=== PATIENT | female | born 1990 | race Caucasian/White ===

== ENCOUNTER 2021-04-01 19:24 | Emergency (ER) | payer OTHER ==
[~2021-04-01] VITALS: Ht 167.6 cm; Wt 65.8 kg
[~2021-04-01 19:24] MED LIST: BACLOFEN20 MG PO; BUPROPION XL300 MG PO; DOXYCYCLINE HY100 MG PO; IPRATROPIUM BRO30 ML NAS
[2021-04-01] MEDS ORDERED: CLARITIN10 MG PO (21:47)
--- OUTSIDE RECORDS SUMMARY | 2021-04-02 00:47 | XMS ---
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 Zhou has no Care Guidelines for this patient. Kavitha V[facility] (12 MO.) [facility] NOTE: Visits indicate total known visits. ED/C VISIT TRACKING (12 MO.) [facility]21 [facility] Emergency COMPLAINT: - NAUSEA 03/29/2021 23:45 [facility] [place] TYPE: Emergency COMPLAINT: - HEADACHE, VOMITING INPATIENT VISIT TRACKING (12 MO.) 03/30/2021 12:57 [facility] [place] TYPE: Critical Care COMPLAINT: - OVERDOSE [id number]
--- NOTE | 2021-04-03 18:42 | EKG ---
[facility] [address] [facility] [place], [place] [address] Signed Normal sinus rhythm Biatrial enlargement Rightward axis Nonspecific T wave abnormality Abnormal ECG No previous ECGs available Confirmed by KATIE SANDOVAL MD ([id number]) on 04/03/2021 6:42:29 PM Electronically Signed By: KATIE SANDOVAL MD 04/03/211841 PATIENT NAME: VON EISENBERG Electrocardiogram DATE OF : [birth year] PHYSICIAN: KATIE SANDOVAL MD REPORT #: [id number] REPORT IS CONFIDENTIAL AND NOT TO BE RELEASED WITHOUT AUTHORIZATION
== END 2021-04-02 02:33 | disposition home or self-care (01) ==
LOC: ED 19:24
DX: G97.1 Other reaction to spinal and lumbar puncture (principal); R07.9 Chest pain, unspecified; M54.9 Dorsalgia, unspecified; Z79.899 Other long term (current) drug therapy
CPT/HCPCS: 71045; 80053; 84484; 85025; 85379; 93005; 93010; 96374; 99285-25; J2405; J7030

== ENCOUNTER 2021-04-04 12:24 | Emergency (ER) | payer OTHER ==
[~2021-04-04] VITALS: Ht 167.6 cm; Wt 59.0 kg
[~2021-04-04 12:24] MED LIST changes: +CLARITIN10 MG PO
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
== END 2021-04-05 10:00 | disposition home or self-care (01) ==
LOC: ED 12:24
PROC: 0T2BX0Z Change Drainage Device in Bladder, External Approach (ICD-10-PCS; principal; 2021-04-04)
DX: G97.1 Other reaction to spinal and lumbar puncture (principal); R07.9 Chest pain, unspecified; Z79.899 Other long term (current) drug therapy
CPT/HCPCS: 51701; 51798; 80053; 81001; 85025; 99283-25; J1170; J1885; J2405; J7030; J7121

== ENCOUNTER 2021-09-17 16:47 | Emergency (ER) | payer OTHER, BC ==
[~2021-09-17] VITALS: Ht 167.6 cm; Wt 59.2 kg
== END 2021-09-17 21:21 | disposition home or self-care (01) ==
LOC: ED 16:47
DX: S06.0X0A Concussion without loss of consciousness, initial encounter (principal); S16.1XXA Strain of muscle, fascia and tendon at neck level, initial encounter; W03.XXXA Other fall on same level due to collision with another person, initial encounter; W22.8XXA Striking against or struck by other objects, initial encounter
CPT/HCPCS: 70450; 72040; 96374; 96375; 99284-25; A9270; J0780; J1170; J1790; J1885; J7030

== ENCOUNTER 2022-02-17 15:18 | Emergency (ER) | payer BC ==
[~2022-02-17] VITALS: Ht 167.6 cm; Wt 59.2 kg
--- NOTE | 2022-02-18 16:57 | EKG ---
[facility] [address] [facility] [place] [address] Signed Sinus bradycardia with sinus arrhythmia Rightward axis Borderline ECG No previous ECGs available Confirmed by ZEINA DIXON MD ([id number]) on 02/18/2022 4:57:41 PM Electronically Signed By: ZEINA DIXON MD 02/18/22 1657 PATIENT NAME: VON SALOMON Electrocardiogram DATE OF : [birth year] PHYSICIAN: ZEINA DIXON MD REPORT #: [id number] REPORT IS CONFIDENTIAL AND NOT TO BE RELEASED WITHOUT AUTHORIZATION
== END 2022-02-17 19:23 | disposition home or self-care (01) ==
LOC: ED 15:18
DX: R00.1 Bradycardia, unspecified (principal); R11.0 Nausea; R42 Dizziness and giddiness
CPT/HCPCS: 36415; 71045; 80053; 83735; 84484; 84703; 85025; 93005; 93010; 99285-25; A9270

== ENCOUNTER 2022-02-18 21:34 | Inpatient (IN) | payer BC ==
[~2022-02-18] VITALS: Ht 167.6 cm; Wt 56.8 kg
--- NOTE | 2022-02-20 15:29 | EKG ---
[facility] [address] [facility] [place] [address] Signed Marked sinus bradycardia Rightward axis ST \T\ T wave abnormality, consider anterior ischemia Abnormal ECG Confirmed by ZEINA DIXON MD ([id number]) on 02/20/2022 3:29:18 PM Electronically Signed By: ZEINA DIXON MD 02/20/22 1529 PATIENT NAME: VON SALOMON Electrocardiogram DATE OF : [birth year] PHYSICIAN: ZEINA DIXON MD REPORT #: [id number] REPORT IS CONFIDENTIAL AND NOT TO BE RELEASED WITHOUT AUTHORIZATION
[2022-02-22] MEDS ORDERED: PROCHLORPERAZIN10 MG PO (10:27)
[2022-02-22] MEDS ORDERED: ONDANSETRON ODT4 MG SL (10:27)
[2022-02-22] MEDS ORDERED: PEPCID20 MG PO (10:27)
== END 2022-02-22 10:50 | disposition home or self-care (01) | DRG 179 ==
LOC: ED 21:34 → MS 21:36 → CCU 21:36 → MS 02-19 13:35 → CCU 02-19 17:17 → MS 02-20 16:00
PROVIDERS: ADMIT Internal Medicine; ATTEND Internal Medicine
PROC: 8E0ZXY6 Isolation (ICD-10-PCS; principal; 2022-02-20)
DX: U07.1 COVID-19 (principal); E86.0 Dehydration; I95.1 Orthostatic hypotension; E03.8 Other specified hypothyroidism; K21.9 Gastro-esophageal reflux disease without esophagitis; K29.00 Acute gastritis without bleeding; N83.201 Unspecified ovarian cyst, right side; R00.1 Bradycardia, unspecified; Z86.711 Personal history of pulmonary embolism; Z95.1 Presence of aortocoronary bypass graft
CPT/HCPCS: 36415; 74176; 76705; 80053; 82533; 83735; 84439; 84443; 84481; 84484; 85025; 85379; 86140; 87502; 93005; 93010; 93306; 96361; 96375; 99285-25; A9270; C9113; C9803; J0780; J0834; J1650; J1720; J2405; J2765; J7030; J7121; Q0177; U0003

== ENCOUNTER 2022-07-27 21:56 | Emergency (ER) | payer BC ==
[~2022-07-27] VITALS: Ht 167.6 cm; Wt 52.2 kg
[~2022-07-27 21:56] MED LIST changes: +ONDANSETRON ODT4 MG SL; +PEPCID20 MG PO; +PROCHLORPERAZIN10 MG PO
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
[2022-07-27] MEDS ORDERED: REGLAN5 MG PO (23:45)
[2022-07-27] MEDS ORDERED: MEGESTROL400 MG/10 PO (23:45)
[2022-07-28] MEDS ORDERED: ONDANSETRON ODT4 MG PO (14:37)
--- NOTE | 2022-07-28 22:08 | EKG ---
[facility] [address] [facility] [place] [address] Signed Sinus bradycardia Rightward axis Nonspecific ST abnormality Abnormal ECG When compared with ECG of 14-JUL-2022 16:24, Significant changes have occurred Confirmed by KATIE SANDOVAL MD ([id number]) on 07/28/2022 10:08:30 PM Electronically Signed By: KATIE SANDOVAL MD 07/28/222207 PATIENT NAME: VON SALOMON Electrocardiogram DATE OF : [birth year] PHYSICIAN: KATIE SANDOVAL MD REPORT #: [id number] REPORT IS CONFIDENTIAL AND NOT TO BE RELEASED WITHOUT AUTHORIZATION
== END 2022-07-28 00:11 | disposition home or self-care (01) ==
LOC: ED 21:56
DX: R55 Syncope and collapse (principal)
CPT/HCPCS: 80053; 83735; 85025; 93005; 93010; 99285-25

== ENCOUNTER 2022-07-28 12:05 | Emergency (ER) | payer BC ==
[~2022-07-28] VITALS: Ht 167.6 cm; Wt 52.4 kg
--- NOTE | ~2022-07-28 | EKG ---
[facility] [address] [facility] [place], [place] [address] Draft EK completed, results pending confirmation PATIENT NAME: VON SALOMON Electrocardiogram DATE OF : [birth year] PHYSICIAN: PRELIMINARY REPORT #: [id number] REPORT IS CONFIDENTIAL AND NOT TO BE RELEASED WITHOUT AUTHORIZATION
[~2022-07-28 12:05] MED LIST changes: +MEGESTROL400 MG/10 PO; +REGLAN5 MG PO
--- OUTSIDE RECORDS SUMMARY | 2022-07-28 12:07 | XMS ---
PreManage Notification: VON SALOMON Security Skip Tracer Events No recent Security Events currently on file CRITERIA MET - [facility] - 2 Visits in 30 Days - 6 ED Visits in 6 Months CARE PROVIDERS JOSE EDUARDO HILL Physician Crab Meat Processor 04/02/2021-Current PHONE: Unknown Zhou has no Care Guidelines for this patient. Colt.Anusha VISIT COUNT (12 MO.) 1 [facility] and Science [place] 1 [facility] ED [address] [facility] TOTAL 9 NOTE: Visits indicate total known visits. ED/C VISIT TRACKING (12 MO.) 07/28/2022 12:06 [facility] [place] TYPE: Emergency COMPLAINT: - LIGHT HEADED, DEHYDRATED 07/27/2022 21:56 [facility] [place] TYPE: Emergency COMPLAINT: - SYNCOPE 07/13/2022 15:54 [facility] [place] TYPE: Emergency COMPLAINT: - VOMITING DIAGNOSES: - Other ventricular tachycardia - Presence of aortocoronary bypass graft - Contact with and (suspected) exposure to COVID-19 - Syncope and collapse 07/13/2022 15:00 [facility] [place] TYPE: Emergency COMPLAINT: - LIGHTHEADED DIAGNOSES: - Other chest pain - Presence of aortocoronary bypass graft - Syncope and collapse 05/26/2022 09:32 [facility] TYPE: Emergency DIAGNOSES: [id number]. Syncpoe 85852. Weakness . Shortness of breath . Chest pain, unspecified . Nausea 02/18/2022 21:35 [facility] [place] TYPE: Emergency COMPLAINT: - DIZZY, LOW HEART RATE 02/17/2022 15:19 [facility] [place] TYPE: Emergency COMPLAINT: - DIZZY, NAUSEA, LOW HEART RATE DIAGNOSES: - Bradycardia, unspecified - Nausea - Dizziness and giddiness 11/17/2021 08:18 [facility] Manny GEIGER TYPE: Emergency DIAGNOSES: - [...] INPATIENT VISIT TRACKING (12 MO.) 07/14/2022 19:59 [facility] TYPE: Cardiovacular ICU DIAGNOSES: - Syncope and collapse - Acute respiratory failure with hypoxia - Dissociative and conversion disorder, unspecified - Apnea, not elsewhere classified - Unspecified coma - Ventricular tachycardia, unspecified - Tachycardia, unspecified 02/20/2022 10:[address] [facility] [address] [facility]bie [facility] [place] TYPE: Medical Surgical COMPLAINT: - GASTRITIS, SYNCOPE, BRADYCARDIA DIAGNOSES: - Gastro-esophageal reflux disease without esophagitis - Other specified hypothyroidism - Unspecified ovarian cyst, right side - [...] without bleeding - Bradycardia, unspecified - Dehydration - Other specified hypothyroidism - COVID-19 - Gastro-esophageal reflux disease without esophagitis - Orthostatic hypotension 12/19/2021 07:51 Mason [facility]ofya GE[facility] TYPE: Intensive Care DIAGNOSES: - Syncope and collapse - Short Achilles tendon (acquired), right ankle - Ventricular tachycardia - Acute kidney failure, unspecified - Malformation of coronary vessels - Other congenital malformations of musculoskeletal system [id number]
[2022-07-28] MEDS ORDERED: ONDANSETRON ODT4 MG PO (14:37)
== END 2022-07-28 21:30 ==
LOC: ED 12:05
DX: E86.0 Dehydration (principal); R00.1 Bradycardia, unspecified; Z95.1 Presence of aortocoronary bypass graft
CPT/HCPCS: 36415; 71045; 80053; 83735; 84484; 85025; 93005; 93010; 96374; 99285-25; J2405; J7030

== ENCOUNTER 2022-07-30 12:03 | Emergency (ER) | payer BC ==
[~2022-07-30] VITALS: Ht 167.6 cm; Wt 52.5 kg
[~2022-07-30 12:03] MED LIST changes: +ONDANSETRON ODT4 MG PO
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
[2022-07-30] MEDS ORDERED: ATIVAN1 MG PO (18:48)
[2022-07-30] MEDS ORDERED: PROMETHAZINE HC25 M1 PO (18:48)
== END 2022-07-30 19:26 | disposition home or self-care (01) ==
LOC: ED 12:03
DX: K31.84 Gastroparesis (principal); R55 Syncope and collapse; Z95.1 Presence of aortocoronary bypass graft
CPT/HCPCS: 36415; 80053; 83735; 84703; 85025; 96361; 96374; 96375; 96376; 99284-25; J2060; J2405; J7030

== ENCOUNTER 2022-08-20 20:30 | Emergency (ER) | payer BC ==
[~2022-08-20] VITALS: Ht 167.6 cm; Wt 52.5 kg
--- NOTE | ~2022-08-20 | EKG ---
[facility] [address] [facility] [place], [place] [address] Draft EK completed, results pending confirmation PATIENT NAME: VON SALOMON Electrocardiogram DATE OF : [birth year] PHYSICIAN: PRELIMINARY REPORT #: [id number] REPORT IS CONFIDENTIAL AND NOT TO BE RELEASED WITHOUT AUTHORIZATION
[~2022-08-20 20:30] MED LIST changes: +ATIVAN1 MG PO; +PROMETHAZINE HC25 M1 PO
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
== END 2022-08-20 22:02 | disposition home or self-care (01) ==
LOC: ED 20:30
DX: R55 Syncope and collapse (principal)
CPT/HCPCS: 36415; 80053; 84484; 85025; 93005; 93010; 99284-25

== ENCOUNTER 2022-12-12 15:18 | Inpatient (IN) | payer BC ==
[~2022-12-12] VITALS: Ht 167.6 cm; Wt 54.5 kg
--- NOTE | ~2022-12-12 | DS ---
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 She has a long-standing diagnosis of gastroparesis and a distant history of eating disorder. This diagnosis of gastroparesis was reaffirmed by solid food emptying study performed under my direction in August 2022 confirming significant gastroparesis. She has been treated with various medications overtime, most notably is intolerant of Reglan and Compazine. She had empiric treatment with domperidone provided by an acquaintance which was beneficial to her, though no longer taking it currently. I was asked by her friend and confidant, Rosy Hernandez RN to assist with hydration. She was having protracted vomiting over the preceding several days up to current admission. Notably, her physician Dr. Li Pryor is out of town and unavailable. The day prior to current admission, she underwent 2 L of lactated Ringer's solution administration in the outpatient area with benefit. She had been using Zofran sublingual without much benefit. I was called by her this morning for protracted vomiting and prescribed a Phenergan suppository 25 mg q.6 hours as an outpatient as she was somewhat resistant to admission to the hospital. This was of no benefit to her. She called me later in the day and she is now directly admitted for further admission for fluid rehydration and other indicated interventions. PAST MEDICAL HISTORY: Rather complex and outlined in note from Dr. 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 She also was thought to have history of pulmonary embolism contacted with air travel, history of gastrointestinal bleeding and prior Achilles tendon lengthening procedure. Her admission medications have included Ativan as needed for anxiety, Megestrol suspension daily likely for appetite support, Reglan 5 mg p.o. t.i.d. despite her previous intolerance of it and Zofran ODT 4 mg q.i.d. as needed. PERTINENT PHYSICAL EXAMINATION: GENERAL: At the time of admission, very thin white woman who look clinically dehydrated. VITAL SIGNS: Temperature 97.5, pulse 55, blood pressure 131/89, O2 saturation 99% on PATIENT NAME: VON SALOMON DISCHARGE SUMMARY DATE OF : [birth year] REPORT #: [id number] PHYSICIAN: ERIBERTO MALCOLM MD PCP: LI PRYOR MD REPORT IS CONFIDENTIAL AND NOT TO BE RELEASED WITHOUT AUTHORIZATION [facility] [address], [place] [address] Draft room air. NECK: Trachea is midline. HEENT: Mucous membranes were dry. CHEST: Clear. HEART: Regular. ABDOMEN: Flat and easily palpated. There is no focal mass or tenderness. EXTREMITIES: Show no clubbing, cyanosis, or edema. HOSPITAL COURSE: She was given aggressive fluid resuscitation with lactated Ringer's solution upon admission. Consideration for administering of erythromycin as a promotility agent was made. An EKG was undertaken as she had somewhat bradycardic arrhythmia. She was noted to have marked sinus bradycardia with a heart rate of 35, nonspecific ST and T-wave changes. Consultation was undertaken with Dr. Motley, hospitalist given her complicated past medical history. Notably, Dr. Motley was very familiar with the patient having admitted her in the past and seen her in the emergency room setting before for concerns of cardiac problems including bradycardic dysrhythmia and presumably a cardiac arrest necessitating a transfer elsewhere for evaluation, which culminated in no specific therapy, though consideration for pacemaker was made at one point. The patient had marked difficulty in maintaining peripheral access. I placed a right internal jugular central venous catheter to assist in her fluid management. Given her small size and so forth, the catheter was more distally placed and anticipated and it was withdrawn to a more acceptable area. The patient was maintained on telemetry as she had a heart rate in the 30s and with some episodes suggestive though not diagnostic of syncopal episode. A gallbladder ultrasound was performed on December 13, which showed no evidence of abnormality of the gallbladder. She did have some right-sided abdominal pain. By December 14, she underwent a CT scan of the abdomen which showed patchy somewhat striated areas of hyperdensity throughout both kidneys, consistent with subtle pyelonephritis. An involuting corpus luteal cyst was noted of the left ovary and a long segment of narrowing involving the mid rectum related to contraction or rectal stricture. She had been empirically begun on Bactrim orally administered for urinalysis at presentation showing white cells of 12 to 20 per high-power field. No urine bacteria and red cells of only 2 to 3. Considering that perhaps the subtle pyelonephritis was a trigger for her gastrointestinal symptoms, she was administered Rocephin under direction of Dr. Motley, which culminated in a rather significant macular eruption and that medication was discontinued. Bactrim orally administered was reinstituted though her issues of vomiting and so forth precluded adequate confidence that the medication was absorbed. Additional evaluation by Dr. Pena follow on hospitalist suggested a benefit perhaps PATIENT NAME: VON SALOMON DISCHARGE SUMMARY DATE OF : [birth year] REPORT #: [id number] PHYSICIAN: ERIBERTO MALCOLM MD PCP: LI PRYOR MD REPORT IS CONFIDENTIAL AND NOT TO BE RELEASED WITHOUT AUTHORIZATION [facility] [address], [place] [address] Draft from Levaquin antibiotic and that was initiated and much better tolerated. She has had overall improvement of her situation, though she had a urinary retention at one point, requiring Cruz catheterization and recurrent apparent retention the day prior to discharge followed by spontaneous voiding and improvement of her voiding function. By day of discharge, the patient has tolerated oral intake including liquids and some solids including a sandwich. She is tolerating oral Levaquin antibiotic and has spontaneously voided. The patient has some additional stressors in her workplace, which are being addressed additionally. The patient does have an inclination to attend a friend's wedding in [place] leaving tomorrow. I advised against doing so given her somewhat uncertain situation overall. She will be considering that. DISCHARGE MEDICATIONS: Will include: 1. Levaquin 750 mg one tablet p.o. daily #7, no refill. 2. Tylenol 500 mg tabs two tablets p.o. q.6 hours as needed for pain #30 and she will continue with her home medication, which currently includes Zofran ODT 8 mg one tab sublingual b.i.d. as needed for nausea. She is advised to maintain a diet typical for those with gastroparesis including frequent meals, upright ingestion and avoidance of excessive fat. FOLLOWUP PLAN: She will return to the ongoing care of Li Pryor, her primary provider. Additional evaluation by Dr. Pryor is ongoing. She has been scheduled to have a Gastroenterology evaluation at [facility], which has been canceled more than one time and is currently scheduled for next month. DISCHARGE DIAGNOSES: 1. Recurrent dehydration, underlying gastroparesis, protracted nausea and vomiting. 2. Occult pyelonephritis (treated). 3. Distant history of eating disorder including requirement for feeding tube etc in teenage years. 4. General intolerance of Reglan, promotility agent. Eriberto Malcolm MD PATIENT NAME: VON SALOMON DISCHARGE SUMMARY DATE OF : [birth year] REPORT #: [id number] PHYSICIAN: ERIBERTO MALCOLM MD PCP: LI PRYOR MD REPORT IS CONFIDENTIAL AND NOT TO BE RELEASED WITHOUT AUTHORIZATION [facility] [address] [place] [address] [place] [address] Draft /LUÍS /[id number] cc: Dr. Li Pryor Copies: ~ PATIENT NAME: VON SALOMON DISCHARGE SUMMARY DATE OF : [birth year] REPORT #: [id number] PHYSICIAN: ERIBERTO MALCOLM MD PCP: LI PRYOR MD REPORT IS CONFIDENTIAL AND NOT TO BE RELEASED WITHOUT AUTHORIZATION
[2022-12-12 15:53] VITALS: BP 131/89
--- NOTE | 2022-12-12 15:57 | NUR ---
PT ARRIVED A DIRECT ADMIT. SHE AMBULATED TO THE FLOOR INDEPENDENTLY. SHE DID NOT WANT THE HOSPITAL TO NOTIFY ANYONE OF HER ADMISSION. SHE DENIED HAVING ANY VALUABLES OTHER THAN HER PHONE, WHICH SHE WOULD LIKE TO KEEP WITH HER. SHE HAS [address] MALCOLM ROUNDED ON PT TO PLACE ORDERS. PT REPORTED SHE DOES NOT THINK SHE HAS VOIDED TODAY, LAST BM YESTERDAY. LOWER ABDOMEN FIRM AND DISTENDED ON HER SLIGHT FRAME. SHE DID NOT REPORT ANY INCREASED DISCOMFORT WITH PALPATION TO SUGGEST DISTENDED BLADDER. SHE REPORTS 6/10 SHARP ABDOMINAL PAIN IN UPPER RIGHT QUADRANT. PAIN HAS INCREASED OVER THE LAST COUPLE DAYS, BUT GOTTEN SIGNIFICANTLY WORSE IN THE HOURS PRIOR TO ARRIVING AT THE HOSPITAL. SHE REPORTS SHE ATTEMPTED TO DRINK WATER ABOUT AN HOUR AGO AND WAS UNABLE TO KEEP IT DOWN. SHE REPORTS SHE HAS NOT KEPT ANYTHING DOWN FOR SEVERAL DAYS. PT DECLINED TO CHANGE INTO GOWN AT THIS TIME.
--- NOTE | 2022-12-12 16:26 | NUR ---
REPORT RECEIVED FROM ZULY NAYLOR. THIS RN ASSUMING CARE OF PT. IV STARTED WITH ULTRASOUND BY ZULY FALK. BRISK BLOOD RETURN NOTED. LABS DRAWN AND SENT TO LAB. PT REPORTS 6/10 PAIN IN RIGHT UPPER QUADRANT. PT REPORTS NAUSEA WELL AND IS SEEN DRY HEAVING ON AND OFF. IV FLUIDS STARTED. MEDICATION GIVEN (SEE MAR). PT REPORTS SHE DOSEN'T KNOW "IF I'VE PEED AT ALL TODAY." STATING SHE DOESN'T FEEL SHE IS URINATING FREQNELTY SHE SHOULD. PT DENIES ADDITIONAL REQUESTS OR COMPLAINTS. WARM BLANKET PROVIDED. CALL LIGHT WITHIN REACH. BED RAILS UP.
--- NOTE | 2022-12-12 17:11 | NUR ---
THIS RN TO ROOM TO CHECK ON PT. PT RESTING IN BED, WATCHING TV. PT REPORTS ONGOING 6/10 PAIN AND STATES NASUEA HAS IMPROVED. PT STATES SHE IS READY FOR ORAL PAIN MEDICATIONS NOW. SEE MAR FOR MEDICATION GIVEN. IV TO LEFT AC INFILTRATED, DC'D PER PROTCOL. DILEEP, ULTRASOUND TECHNITIAN CALLED TO BEDSIDE FOR A NEW IV. JAME, RT, TO BEDSIDE FOR EKG. PT DENIES ADDITIONAL REQEUSTS OR COMPLAINTS. CALL LIGHT WITHIN REACH. BED RAILS UP.
--- NOTE | 2022-12-12 17:38 | NUR ---
PT ADMITTED THIS SHFIT FOR UNCONTROLLED NAUSEA AND VOIMITING WIHT DEHYDRATION. PT INDEPENDANT IN ROOM AND STEADY ON FEET. PT TOLERATING SIPS OF CLEAR LIQUID DIET. OCCATIONAL NAUSEA THIS SHIFT WITH PRN MEDICATION GIVEN. PRN PAIN MEDICATION GIVEN FOR 6/10 RIGHT UPPER QUADRANT PAIN. ULTRASOUND IV X2, FIRST INFILTRATED. IV FLUID BOLUS GIVEN, IV HYDRATION CONTINUES. BOWEL TONES ACTIVE. PT HAS YET TO VOID. PT USES CALL LIGHT AND MAKES NEEDS KNOWN.
[2022-12-12 17:59] VITALS: BP 145/82
--- NOTE | 2022-12-12 18:02 | NUR ---
THIS RN TO ROOM TO CHECK ON PT. PT REPORTS 6/10 ABDOMINAL PAIN CONTINUES AND SHE WOULD LIKE SOMETHING STRONGER FOR PAIN. DR. MALCOLM CALLED. NEW ORDERS GIVEN, ORDERS ENTERED, REPEAT BACK PERFORMED.
--- NOTE | 2022-12-12 18:07 | NUR ---
DR. MALCOLM CALLED AND UPDATED REGARDING PTS HEART RATE AND EVENING VITAL SIGNS. PT REPORTS CHEST PAIN AND DIZZINESS. PRN PAIN MEDICATION GIVEN. NO NEW ORDERS FROM DR. MALCOLM AT THIS TIME. EKG ON CHART.
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
--- NOTE | 2022-12-12 19:20 | NUR ---
MEDICTIONS DUE. IV MAG STARTED. PT DECLINES INAPSINE STATING "I DON'T LIKE HOW IT MADE ME FEEL YESTERDAY." PT REPORTS SHE DOES NOT WANT ADDITIONAL NAUSEA MEDICATIONS AT THIS TIME. PT DOES REPORT ONGOING 6/10 PAIN AND REQUESTS ADDITIONAL PAIN MEDICAITON. SEE MAR FOR MEDICAITON GIVEN. REPORT GIVEN TO RAMY CARUSO WHO IS ASSUMING CARE OF PT. PT DENIES DIZZINESS OR CHEST PAIN REPORTING ONLY THE RIGTH SIDE/ABDOMEN/LOWER CHEST AND FLANK PAIN. NO ADDITONAL NEEDS AT THSI TIME. CALL [employer] WITHIN REACH BED RAILS UP.
--- NOTE | 2022-12-12 20:30 | NUR ---
REPORT RECEIVED THAT MD IS AWARE OF LOW HR
--- NOTE | 2022-12-12 22:35 | NUR ---
SUPERVISIOR ATTEMPTING IV START, UNSUCESSFUL.
--- NOTE | 2022-12-12 22:45 | NUR ---
TC TO DR MALCOLM CONCERNING UNSUCESSFUL IV ATTEMPTS, WORSENING NAUSEA AND PAIN, MD WOULD LIKE THE SAPHENOUS VEIN ATTEMPTED BY RNS, ALSO ORDER RECEIVED FOR ZOFRAN 8MG ORALLY.
--- NOTE | 2022-12-12 22:55 | NUR ---
WARM PACKS TO LEGS, DISCUSSED WITH PT THE NEED TO TRY LEG VEINS, ORAL ZOFRAN 8MG GIVEN PER ORDER, PT REMAINING CALM WITH WITH IV ATTEMPTS.
--- NOTE | 2022-12-13 00:33 | NUR ---
KCL # 2 HUNG AND INFUSING PER ORDER, IV SITE INTACT.
--- NOTE | 2022-12-13 00:36 | NUR ---
PT MEDICATED WITH TORADOL 30MG IV FOR C/O ABDOMINAL PAIN. IV PATENT.
--- NOTE | 2022-12-13 00:46 | NUR ---
VS AND ASSESSMENT DONE
--- NOTE | 2022-12-13 00:55 | NUR ---
RT REQUESTED TO DO EKG FOR PT'S C/O CHEST PAIN, WHICH PT STATED STARTED APPROXIAMTELY 1 HOUR AGO PER PT REPORT, OXYGEN SAT 100%, BREATH SOUNDS CLEAR, RESP RATE 16-20/MIN, PT STATES CHEST PAIN 5/10, LIKE PRESSURE AND ABDOMINAL PAIN 7/10.
--- NOTE | 2022-12-13 01:09 | NUR ---
PT RESTING WITH EYES CLOSED AND HANDS OVER ABDOMIN, RN TO BEDSIDE, PT AWAKENS, STATES CHEST PAIN IS A LITTLE IMPROVED BUT STILL PRESENT. ABDOMIN DISCOMFORT ABOUT THE SAME.
--- NOTE | 2022-12-13 01:18 | NUR ---
TC CALL TO DR MALCOLM TO REPORT PT'S C/O OF CHEST PAIN AND RESULTS OF EKG, REPORT GIVEN ON VS BP 140/69 AND CONTINUED HR OF 35-46, ORDERS RECEIVED THAT DILAUDID MAYBE GIVEN EVERY 30MINUTES PRN WITH SAME DOSE OF 0.5MG IV, STATES IF UNABLE TO RUN KCL WITH CURRENT IV THAT KCL MAYBE HELD.
--- NOTE | 2022-12-13 01:20 | NUR ---
POTASSIUM IV RETIMED DUE TO PT WITHOUT IV ACCESS PRIOR TO COMPLETING FIRST DOSE.
--- NOTE | 2022-12-13 01:30 | NUR ---
PT MEDICATED WITH DILAUDID 0.5MG IV FOR C/O CHEST PAIN WHICH IS 5/10 AND ABDOMINAL PAIN 7/10, PT RESTING. RN AT BEDSIDE.
--- NOTE | 2022-12-13 01:54 | NUR ---
THIRD DOSE OF KCL STARTED PER ORDER.
--- NOTE | 2022-12-13 02:05 | NUR ---
IV ALARMING, UNABLE TO FLUSH, SITE PAINFUL, IV D'GENOVEVA,
--- NOTE | 2022-12-13 02:40 | NUR ---
IV ATTEMPT BY GI CARUSO, INFILTRATED AFTER PLACED.
--- NOTE | 2022-12-13 03:10 | NUR ---
RN NOTIFIED SUPERVISIOR ELIZABETH WAS ABLE TO PLACE A 20G IN LEFT AC, WHEN RN TO ROOM PT FOUND UP IN BR, STATING SHE WAS ATTEMPTING VOIDING, BUT ONLY PASSED A "FEW DROPS", UNMEASURABLE, PT STOPPED AND THREW UP IN GARBAGE CAN BILE COLOR FLUID, BACK TO BED, THROWING UP, ASSISTED TO LAYING POSITION, IVF STARTED AT 50ML/HR THEN INCREASED TO 125ML/HR AFTER A FEW MINUTES.
--- NOTE | 2022-12-13 03:20 | NUR ---
PT REQUESTING ZOFRAN, PRIOR TO ADMINISTRATION NOTED IV SITE PUFFY AND PAINFUL TO FLUSH. SITE INFILTRATED, IVF STOPPED, UNABLE TO GIVEN ZOFRAN.
--- NOTE | 2022-12-13 03:50 | NUR ---
TC TO DR MALCOLM TO NOTIFY 2ND IV HAS INFILTRATED, UNABLE TO ESTABLISH IV ACCESS EVEN WITH U/S, DISCUSSED NO VOID, AND APPROXIMATELY 700ML TOTAL OF EMESIS THIS SHIFT, PT CONTINUES TO BE NAUSEATED, MD PLANS TO COME IN AND REQUESTS PREPARATIONS FOR CENTRAL LINE PLACEMENT BE MADE.
--- NOTE | 2022-12-13 04:35 | NUR ---
DR MALCOLM ARRIVED TO UNIT, PREPARING FOR CENTRAL LINE PLACEMENT, FILI CARUSO ASSISTING, SUPPORT GIVEN TO PT.
--- NOTE | 2022-12-13 04:58 | NUR ---
PER PROTOCOL AND REQUEST OF [facility], CHEST X-RAY ORDERED STAT FOR CONFIRMATION OF CENTRAL LINE PLACEMENT.
--- NOTE | 2022-12-13 05:00 | NUR ---
CXR COMPLETED AND REVIEWED PER DR MALCOLM, CONFIRMATION FOR PROPER PLACEMENT CONFIRMED.
--- NOTE | 2022-12-13 05:05 | NUR ---
LR #1 UP AND INFUSING A BOLUS PER ORDER OF DR MALCOLM.
--- NOTE | 2022-12-13 05:34 | NUR ---
PT C/O ABDOMINAL PAIN, MEDICATED WITH DILAUDID 1MG IV PER ORDER.
[2022-12-13 05:40] VITALS: BP 145/78
--- NOTE | 2022-12-13 05:41 | NUR ---
HYDROCORTIZONE 100MG IV GIVEN PER ORDER OF DR MALCOLM.
[2022-12-13 05:44] VITALS: BP 159/83
--- NOTE | 2022-12-13 05:45 | NUR ---
LABS DRAWN PER CENTRAL LINE AFTER WASTE DONE PER FILI CARUSO.
--- NOTE | 2022-12-13 06:00 | NUR ---
FIRST LITER OF LR INFUSED, 2ND LITER BOLUS OF LR HUNG AND INFUSING WELL PER PUMP, CENTRAL LINE INTACT.
--- NOTE | 2022-12-13 06:37 | EKG ---
[facility] [address] [place] [address] Signed Marked sinus bradycardia Rightward axis Anterior infarct , age undetermined Abnormal ECG When compared with ECG of 20-AUG-2022 20:45, Vent. rate has decreased BY 29 BPM Confirmed by KATIE SANDOVAL MD ([id number]) on 12/13/2022 6:36:59 AM Electronically Signed By: KATIE SANDOVAL MD 12/13/22 0637 PATIENT NAME: VON SALOMON Electrocardiogram DATE OF : [birth year] PHYSICIAN: KATIE SANDOVAL MD REPORT #: [id number] REPORT IS CONFIDENTIAL AND NOT TO BE RELEASED WITHOUT AUTHORIZATION
--- NOTE | 2022-12-13 06:38 | EKG ---
[facility] [address] [facility] [place] [address] Signed Marked sinus bradycardia Right axis deviation Nonspecific ST and T wave abnormality Abnormal ECG No previous ECGs available Confirmed by KATIE SANDOVAL MD ([id number]) on 12/13/2022 6:38:09 AM Electronically Signed By: KATIE SANDOVAL MD 12/13/22 0638 PATIENT NAME: VON SALOMON Electrocardiogram DATE OF : [birth year] PHYSICIAN: KATIE SANDOVAL MD REPORT #: [id number] REPORT IS CONFIDENTIAL AND NOT TO BE RELEASED WITHOUT AUTHORIZATION
--- NOTE | 2022-12-13 07:09 | NUR ---
CONFIRMATION CXR DONE PER ORDER AND REVIEWED PER DR MALCOLM, GINNY REPORTED OK TO USE.
--- NOTE | 2022-12-13 07:15 | NUR ---
REPORT RECEIVED FROM ZULY MCCANN. PT RESTING IN BED. REPORTS SEVERE NAUSEA. PT REPORTS NAUSEA IS MUCH WORSE THAN THE PAIN. DRY HEAVES NOTED. DR. MALCOLM CONSULTED, AND STATES TO HOLD INAPSINE. DR MALCOLM UPDATED REGARDING URIN OUTPUT. PT BLADDER SCANED AND >690 FOUND IN BLADDER. ORDERS GIVEN FOR MORALES CATHTER. ORDERS ENTERED. PT UPDATED ON PLAN OF CARE AND STATES HER QUESTIONS HAVE BEEN ASNWSERED.
--- NOTE | 2022-12-13 08:12 | NUR ---
MORNING ASSESSMENT AND MEDICATION DUE. PT CONTINUES TO DRY HEAVE AT TIMES. ATTEMPTES TO PLACE MORALES CATHETER, TIRED BY THIS RN, SAW SALAZAR LIZ ([facility]), CYNDY (MED/SURG CHARGE), AND MIKE, (CONSTRUCTION DIRECTOR). MORALES CATHETER FINALLY PLACED BY ZULY MCKEON. 875ML RETURN OF CLEAR YELLOW URINE. PT REPROTS 3/10 PAIN IN RIGHT ABDOMEN. PT DENIES NEED FOR PAIN MEDICATION AT THIS TIME STATING "IT'S JUST NAUSEA RIGHT NOW." INAPSINE CONTINUES TO BE HELD RELATED TO HEART RATE. TELEMETRY MONITORING IN PLACE WITH SINUS BRADYS SEEN ON MONITOR, HEART RATE 30-40'S. PT REPORTS DIZZINESS AND CHEST PAIN THAT IS "A LITTLE BIT BETTER." PT CONTINUES TO HAVE TROUBLE EVEN TOLERTING SIPS OF LIQUIDS. ABDOMEN SOFT BUT TENDER IN RIGHT UPPER QUADRANT. BOWEL TONES HYPOACTIVE. DRYING HEAVING CONTINUES EVEN AFTER FOLCY CATHETER PLACEMENT. DR SANDOVAL CONSULTED. AWAITING NEW ORDERS. PT REPORTS "LESS PRESSURE" IN HER STOMACH AFTER CATHETER PLACEMENT. REPORTS NAUSEA IS UNCHANGED. BED RAILS UP. CALL LIGHT IGOR YOUSSEF.
[2022-12-13] MEDS ORDERED: BUPROPION XL150 MG PO (08:20)
[2022-12-13] MEDS ORDERED: ATOMOXETINE HCL60 MG PO (08:20)
[2022-12-13] MEDS ORDERED: TRAZODONE HCL100 MG PO (08:20)
[2022-12-13] MEDS ORDERED: ONDANSETRON ODT8 MG SL (08:22)
[2022-12-13] MEDS ORDERED: PROMETHEGAN25 MG PR (08:27)
--- NOTE | 2022-12-13 08:47 | NUR ---
DR. MALCOLM CALLED AND UPDATED REGARDING PT STATUS. STATES TO GIVEN INAPSINE AT THIS TIME. MEDICATION GIVEN. PT CONTINUES TO DRY HEAVE ON AND OFF. PO MEDICATINO HELD FOR THIS REASON. PT STATES SHE DOES NOT TYPICALLY HAVE A HEART RATE INT HE 30-40'S AND "I FEEL LIKE CRAP WHEN ITS LIKE THAT." PT STATES HER HEART RATE TRACKER FROM HER WATCH STATES HER ADVERAGE LOW HAERT RATE OVER THE LAST WEEK IS 65 BPM. PTS WATCH COORILATES TO CURRENT TELEMETRY MONITORING. PT ENCORUAEGD TO REST. CALL LIGHT WITHIN REACH. BED RAILS UP. DR. SANDOVAL UPDATED ON PT STATUS.
--- NOTE | 2022-12-13 09:41 | NUR ---
DR MALCOLM CALLED TO REQUEST AND UPDATE. UPDATED ON PT STATUS. PT REPORTS THE INAPSINE HELPED AND HER NAUSEA IS "BETTER" AT THIS TIME. PT REPORTS PAIN IS "BETTER" ALSO AND DENIES NEED FOR PAIN MEDICAITON. PT WATCHING TV. HEART RATE 43 ON TELEMETRY MONITORING WITH SINUSY BRADYCARDIA RYTHEM. PT DENIES ADDITIONAL REQUESTS OR COMPLAINTS. NO NEW ORDERS FROM DR. MLACOLM. CALL LIGHT WITHIN REACH. BED RAILS UP.
[2022-12-13 09:43] VITALS: BP 117/72
--- NOTE | 2022-12-13 10:35 | NUR ---
THIS RN TO ROOM TO CHECK ON PT. DR. SANDOVAL TO BEDSIDE FOR ROUNDS. PT UPDATED ON PLAN OF CARE AND VERBALIZES UNDERSTANDING STATING HER QUESTIONS HAVE BEEN ANSWERED. PT ENCOURAGED TO REST. NAP TIME SIGN PLACED ON DOOR AND PT ENCOURAEGD TO CALL IF SHE NEEDS HELP OTHERWISE SHE WILL BE ALLOWED TO REST. PT COTNINUES TO REPORT NAUSEA BUT NOTABLY PT IS NOT DRY HEAVING AND APPEARS MORE RELAXED. MORALES CATHETER WNL, CLEAR YELLOW URINE SEEN IN BAG. HEART RATE 37 WITH SINUSY BRADYCARDIA SEEN ON MONITOR. NO ADDITIONAL REQUESTS OR COMPLAINTS. CALL LIGHT WITHIN REACH. BED RAILS UP.
--- NOTE | 2022-12-13 11:47 | NUR ---
THIS RN TO ROOM TO CHECK ON PT. MEDICATION DUE. PT RESTING IN SUPINE POSITION. FRIEND AT BEDSIDE. PT REPORTS 3/10 RIGHT SIDE AND RIGHT LOWER CHEST PAIN THAT IS "BETTER." PT REPORTS 4/10 NAUSEA, IF 10/10 WAS THE EPISODES THIS MORNING, WHICH IS ALSO GETTING BETTER. PT CONTINUES TO STATE SHE CANNOT TOLERATE PO, MEDICATION HELD. IV POTASSIUM STARETED. CENTRAL LINE REMAINS WNL WITH BRISK BLOOD RETURN NOTED. POTASSIUM INFUSING WITH IV FLUIDS THROUGH WHITE LUMEN. MORALES CATHETER REMAINS WNL. DRAINING CLEAR YELLOW URINE. PT VERY ANXOUS ABOUT GOING HOME TODAY. 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 THERAPUTIC COMMUNICATION DONE WITH PT AND PT AGREES TO TAKE EACH HOUR AT A TIME. NO ADDITIONAL NEEDS AT THIS TIME. CALL LIGHT WITHIN REACH. BED RAILS UP.
--- NOTE | 2022-12-13 12:18 | NUR ---
ULTRASOUND TECHNITIAN CALLED AND STATES SHE WILL BE IN SHORTLY FOR IMAGING. CHARGE NURSE UPDATED.
--- NOTE | 2022-12-13 13:16 | NUR ---
AFTERNOON ASSESSMENT AND MEDICATION DUE. PT RESTING IN BED. PT REQUESTS LINEN CHANGE. PT UP TO CHAIR WITH STAND BY ASSIST. PT DENIES DIZZINESS, PT STEADY ON FEET. PT REPORTS "FOGGY" THINKING BUT OTHERWISE STATES SHE IS FEELING MUCH BETTER. PT DENIES DIZZINESS CHEST PAIN OR LIGHT HEADEDNESS. PT REPORTS 2/10 RIGHT UPPER QUDRANT PAIN AND 2/10 NAUSEA BOTH OF WHICH ARE "BETTER." PT CONTINUES TO STATE SHE IS ANXOUS TO GET HOME. MEDICAL NEED TO STAY REVEIWED WITH PT AND PT VERBALIZES UNDERSTANDING. CENTRAL LINE ASSESSED, WNL. WHITE LUMEN CONTINUES INFUSING IV FLUIDS AND POTASSIUM. BLUE AND BROWN LINES FLUSHED, BRISK BLOOD RETURN NOTED, AND HEPARIN LOCKED. ALCOHOL CAPS APPLIED. LUNG SOUNDS CLEAR. TELEMETRY MONITORING IN PLACED WITH SINUS BRADYCARDIA SEEN ON MONITOR. HEART RATE NOW 40-50'S. MILD ABDOMINAL DISTENTION CONTINUES, IMPROVING. PT REPORTS ABDOMEN IS "LESS TIGHT" SINCE CATHEER PLACEMENT. BOWEL TONES HYPOACTIVE. ABDOMEN TENDER IN RIGHT UPPER QUADRANT. PT REMAINS NPO PER HER CHOICE. STATES SHE IS NOT YET READY TO TRY FLUIDS. MORALES CATHETER EMPITED OF 350ML CLEAR YELLOW URINE. DR. MALCOLM CALLED AND UPDATED ON PT STAUTS. ORDERS GIVEN TO DC HYDROCORISONE AND ANTIBIOTIC. ORDERS DC'D AT THIS TIME. PT UPDATED ON PLAN OF CARE. PT RESTING IN BED WITH EYES CLOSED, PTS FRIEND AT BEDSIDE. CALL LIGHT WITHIN REACH. BED RAILS UP. DO NOT DESTURB SIGN REMAINS ON DOOR.
[2022-12-13 13:32] VITALS: BP 125/72
--- NOTE | 2022-12-13 14:17 | NUR ---
THIS RN TO ROOM TO CHECK ON PT. PT RESTING WITH EYES CLOSED. AWAKENS BRIEFLY TO MOVEMENT IN THE ROOM. PT DENIES REQUESTS OR COMPLAINTS. REPORTS PAIN AND NAUSEA ARE WELL CONTROLLED. NEW BAG OF MATINENCE IV FLUIDS HUNG. NO ADDITIONAL REQUESTS OR COMPLAINTS. CALL LIGHT WITHIN REACH. BED RAILS UP.
--- NOTE | 2022-12-13 15:17 | NUR ---
THIS RN TO ROOM TO CHECK ON PT. PT RESTING IN BED WITH EYES CLOSED, RESPIRATIONS EVEN AND UNLABORED. TELEMETRY MONITORING SHOWS SINUS BRADYCARDIA WITH HEART RATE IN THE 40'S. PT ALLOWED TO REST. CALL LIGHT WITHIN REACH. BED RAILS UP.
--- NOTE | 2022-12-13 15:22 | NUR ---
PT HERE FOR UNCONTROLLED NAUSEA AND VOIMITING WITH SEVERE DEHYDRATION. PT INDEPENDANT IN ROOM AND STEADY ON FEET. PT NOT TOLEARTING ANY PO INTAKE SO FAR THIS SHIFT. PRN NAUSEA MEDICATION GIVEN X1 FOR SEVERE NAUSEA AND DRY HEAVING. THEN ALL MEDICAITONS STOPPED RELATED TO POSSIBLE POLYPHARMACY AND SIDE EFFECTS. BLADDER SCAN THIS MORING AT >690ML AND PT UNABLE TO VOID. MORALES CATHETER PLACED WITH 850ML RETURN, CONTINUES TO DRAIN, QUANITTY SUFFICIENT. UA SENT. MONITORING LABS. CENTRAL LINE IN PLACE WITH IV HYDRATION. PT REPORTS PAIN AND NASUEA ARE IMPROVING THIS AFTERNOON. BOWEL TONES ACTIVE. PT ENOURAGED TO REST THIS SHIFT. PT ANXIOUS FOR DISCHARGE. TELEMETRY MONITORING REMAINS IN PLACE WITH SINUSY RICKY CARDIA IN THE 30-50'S THIS SHIFT. PT USES CALL LIGHT AND MAKES NEEDS KNOWN.
--- NOTE | 2022-12-13 16:30 | NUR ---
PT CALL LIGHT ON. PT REPORTS SHE WOULD LIKE TO MAKE A PLAN FOR GOING HOME SHE FEELS PRESSURE TO WORK TOMORROW AND IS WORRIED ABOUT LOOSING HER JOB. PT RIGHT REVEWIED WITH PT AND LONG THERAPUTIC COMMUICATION DISCUSSION HELD WITH PT. PT VERBALIZES UNDERSTANDING OF PLAN OF CARE AND NEED FOR ADDITIONAL MEDICAL CARES. PT VERABLIZES UNDERSTANDING THAT SHE IS NOT MEDICALLY STABLE AT THIS TIME. DR SANDOVAL REQUESTS INFORMATION REGARDING TIME PT TOOK PHENEGRAN YESTERDAY WELL HALF LIFE OF ZOFRAN AND PHENGRAN. INFORMATION AQUIRED FROM PT AND YANE, PHARMACIST AND PASSED ON TO DR SANDOVAL. (PT REPORTS SHE TOOK THE PHENEGRAN AT 1130AM WEDNESDAY MORNING, ZOFRAN GIVEN DURING HOSPITAL STAY). MORALES CATHETER LEFT IN PLACE. URINE SAMPLE COLLECTED AND SENT TO LAB. PT REPORTS 6/10 NAUSEA AT THIS TIME AND IS SEEN TO HAVE AN ADDITIONAL 300ML LIGHT CLEAR YELLOW EMESIS AFTER TAKING A SIP OF WATER. ORAL CARE DONE. PT REPORTS 5/10 PAIN. PT DENIES NEED FOR MEDICATIONS FOR EITHER PAIN OR NASUEA. DR SANDOVAL UPDATED ON PT STATUS, MEDICATOIN INFORMATION, AND PTS CONCERNS. NO NEW ORDERS AT THIS TIME. CALL LIGHT WITHIN REACH. BED RAILS UP. PTS FRIEND AT BEDSIDE.
--- NOTE | 2022-12-13 17:10 | NUR ---
LABS DUE. PT CONTINUES RESTING IN BED AND CONTINUES TO BE AGITATED ABOUT LOOSING HER JOB. PT WILLING TO TEXT HER BOSS AND REPORT THAT SHE IS NOT YET MEDICALLY STABLE. 10ML BLOOD REMOVED FROM BROWN LUMEN OF CENTRAL LINE TO REMOVE HEPARIN AND WASTE. 5ML LAB DRAW AFTER WASTE (SENT TO LAB). LINE FLUSHED WITH 10ML NS AND HEARPIN LOCKED PER PROTOCOL (SEE MAR). ALCOHOL CAP APPLIED. PT REQUESTS TO GET UP TO AMBULATE. PT UP IN [place] TO AMBULATE WITH GARBAGE WORKER STAND BY ASSISTANCE. HEART RATE IN THE 50-60'S WITH AMBULATION. DR. SANDOVAL TALKING WITH PT WHILE SHE AMBULATES. NO ADDITIONAL REQUESTS OR COMPLAINTS.
--- NOTE | 2022-12-13 17:26 | NUR ---
Assisted Pt with ambulation from bed through hallway. Pt seemed dizzy and stopped a couple times to catch breath and held hand at chest near heart. Pt ambulated near RN and Doctor, and Pt sat down in chair for a few minutes. Ambulated Pt back to room when Pt was stable. Call light left in reach. Tele monitor connected and on. No other needs expressed by Pt.
[2022-12-13 17:32] VITALS: BP 114/71
--- NOTE | 2022-12-13 17:47 | NUR ---
PT UP TO AMBULATE IN NGUYEN, WHILE AMBULATING PT BECOMES DIZZY AND EYES BEGIN TO FLUTTER. UNABLE TO SEE EXACT HEART RYTHEM AT THIS TIME 2 LEADS HAD COME LOOSE. TELEMETRY LEADS REATTACHED. DR SANDOVAL WITH PT. PT WHEELED BACK TO ROOM AND ENCOURAGED TO REST. HEART RATE CURRENTLY IN SINUS BRADYCARDIA WITH HEART RATE IN THE 40'S. DR. MALCOLM CALLED AND UPDATED ON PTS STATUS, ASSESSMENT AND LABS. NEW ORDERS GIVEN. ORDERS ENTERED, REPEAT BACK PERFORMED. DR SANDOVAL ENTERS BACTRUM ORDER PER HER REQUEST. PTS STATUS CHANGED TO INPATIENT PER DR. MALCOLM. PT RESTING IN BED. NO ADDITIONAL NEEDS AT THIS TIME. CALL LIGHT WITHIN REACH. BED RAILS UP.
--- NOTE | 2022-12-13 18:10 | NUR ---
NEW MEDICATION ORDERED. GIVEN ORDERD. PT SEEN TO DRY HEAVE AFTER TAKING MEDICATION BUT IS SO FAR ABLE TO KEEP MEDICATION DOWN.CENTRAL LINE DRESSING LOOSE, CHANGED PER PROROCOL. PROCEEDURE AND PLAN OF CARE REVIEWED WITH PT. PT ENCOUARGED TO REST. TELEMTRY MONTIORING IN PLACE, HEART RATE IN THE 40'S. NO ADDITIONAL REQUESTS OR COMPLAINTS. CALL LIGHT WITHIN REACH. BED RAILS UP. PT CONTINEUS TO REPORT FOGGY THINKING AND STATES "I'M NOT THINKING VERY WELL RIGHT NOW." PT ENCORUAGED TO REST.
--- NOTE | 2022-12-13 19:51 | NUR ---
IV ALARMING, DISTAL OCCUL. TUBE KINKED UNDER ARM, REPLACED TELE LEADS. ENCOURAGED PT TO CALL IF IV ALARMS.
--- NOTE | 2022-12-13 20:03 | NUR ---
RECEIVED REPORT FROM DAY SHIFT RN. PATIENT IS RESTING IN BED. PATIENT DENIES ANY NAUSEA. NO NEEDS NOTED. CALL LIGHT IN REACH. IV INFUSING PER ORDER.
[2022-12-13 21:28] VITALS: BP 122/71
--- NOTE | 2022-12-13 21:50 | NUR ---
Assisted RN with 1PA seated shower. Pt independently washed hair and body. Pt became lightheaded and needed assistance from RESIDENTIAL PROPERTY MANAGER and RN getting from shower to bed. Gave Pt clean socks, gown, and blankets. Cleaned up bathroom and shower by wiping up water. RN assumed care. No other needs expressed by Pt.
--- NOTE | 2022-12-13 22:28 | NUR ---
PATIENT ASSESMENT COMPLETED. VITALS TAKEN AND RECORDED. MORALES EMPTIED. INTAKE AND OUTPUT RECORDED. PATIENTS PM MEDS GIVEN PER ORDER. PATIENT HAS IJ AND THIS RN SL IT FOR SHOWER. WHEN GETTING UP TO SHOWER PATIENT STOOD AT BEDSIDE AND THEN WENT LIMP AND EYES ROLLED BACK INTO HEAD. AFTER ABOUT A MIN PATIENT STATED "I AM FINE". PATIENT ABLE TO SHOWER SLEF WHILE SITTING IN SHOWER CHAIR PATIENT DID HAVE EPISODE OF WRETCHING NO EMESIS NOTED. PATIENT BACK IN BED AFTER SHOWER. IJ DRESSING CHANGED AND IS NOW INFUSING PER ORDER. PATIENT PLACED BACK ON TELE #1 AND CONTINUES TO BED SINUS RICKY. PATIENTS MORALES DRAINING CLEAR YELLOW URINE. PATIENT DENIES ANY FURTHER NEEDS. CALL LIGHT IN REACH. BED ALARM ON FOR SAFETY.
--- NOTE | 2022-12-13 22:34 | NUR ---
PATIENT HAD NOTED IN CREASED HR ON TELE. PATIENT FOUND IN BATHROOM BRUSHING HER TEETH. PATIENT EDUCATED ON THE IMPORTANCE TO HAVE STAFF WITH HER AT ALL TIMES WHEN SHE IS OUT OF BED. BED ALARM MUST HAV NOT SET PROPERLY. PATIENT STATED "I AM FINE I AM SAFE". PATIENT EDUCATED THAT SHE HAS HAD NOTED EPISODES OF EYES ROLLING BACK IN HER HEAD, WEAKNESS AND BEING DIZZY. PATIENT STATED "I AM FINE". PATIENTS BED ALARM PLACED ON FOR PATIENT SAFETY.
--- NOTE | 2022-12-13 23:10 | NUR ---
PATIENT UP AND AMBULATED IN THE HALLWAY. PATIENT COMPLETED X3 LAP IN THE HALLWAY. PATIENT HAD ONE EPISODE OF "TUNNEL VISION". PATIENT OSAT IN WHEELCAHIR FOR ABOUT 1 MINUTE AND THEN WAS ABLE TO AMBULATE BACK TO ROOM. PATIENT IS IN BED RESTING. PATIENT DENIES ANY FURTHER NEEDS. CALL LIGHT IN REACH.
--- NOTE | 2022-12-14 00:12 | NUR ---
PATIENT IS RESTING IN BED. PATIENT DENIES ANY NEEDS. CALL LIGHT IN REACH. IV INFUSING PER ORDER.
--- NOTE | 2022-12-14 02:18 | NUR ---
PATIENT IS RESTING IN BED WITH EYES CLOSED, RR 16. TELE #1, HR 46. CALL LIGHT IN REACH.
--- NOTE | 2022-12-14 02:55 | NUR ---
PATIENT HAD 200ML OF EMESIS. PATIENT UP TO BR AND ABLE TO BRUSH TEETH. PATIENT AMBULATED X5 LAPS IN HALLWAY. PATIENT ABLE TO COMPLETED CARE AND AMBULATE IN NGUYEN WITH NO NOTED EPISODES OF BEING DIZZY OR LIGHT HEADED. PATIENT IS BACK IN BED RESTING. PATIENT DENIES ANY FURTHER NAUSEA AFTER AMBULATION OR PAIN. PATIENT DENIES ANY FURTHER NEEDS. CALL LIGHT IN REACH. IV INFUSING PER ORDER.
--- NOTE | 2022-12-14 03:05 | NUR ---
THIS RN NOTICED PATIENT HAD INCREASED HR OF 111 ON TELE. PLACED CALL TO CCU. CCU RN STATED "IT LOOKS LIKE ARTIFACT". THIS RN ASKED CCU TO PRINT STRIPS OF THE EVENT. DURING EVENT PATIENT WAS RESTING IN BED WITH EYES CLOSED, RR 16. HANDS AT PATIENTS SIDE. PATIENT ONLY COVERED IN SHEET.
--- NOTE | 2022-12-14 03:35 | NUR ---
PATIENT WITH NOTED INCREASED HR ON TELE NOTED BY DIRECTOR INSTRUCTIONAL MATERIAL TO BE 255 WITH WHAT APPEARED TO BE ARTIFACT. PATIENT REPORTED ABD PAIN AND CONTINUES TO WRETCH. PATIENT GIVEN PRN PAIN MEDICATION AND CONTINUES TO REFUSE NAUSEA MEDICATION. CCU PRINTED STRIP FROM INCREASED HR NOTED AT 330. PATIENT DENIES ANY CHEST PAIN OR DISCOMFORT. PATIENT REPORTS HAVING A HARD TIME CATCHING HER BREATH DURING WRETCHING. PATIENT APPEARS TO BE COMFORTABLE AND DENIES ANY FURTHER NEEDS. CALL LIGHT IN REACH.
--- NOTE | 2022-12-14 04:13 | NUR ---
PATIENT CONTINUES TO WRETCH. CCU RN CALLED AND STATED THAT PATIENT HAD WHAT APPEARED TO BE 12.45 SEC RUN OF VFIB. PLACED CALL TO MD. VERBAL ORDER RECEIVED TO GIVE PRN ZOFRAN. MD ASKS THAT STRIPS BE PRINTED OF EVENTS AND TO CALL IF HR IS ELEVATED AGAIN. PATIENTS TELE LEAD AND STICKERS REPLACED AFTER PATIENT CLEANED SKIN WITH ALCOHOL SWAB AND DRIED. PATIENT GIVEN PRN ZOFRAN. IV INFUSING PER ORDER. NO FURTHER NEEDS NOTED. CALL LIGHT IN REACH.
[2022-12-14 05:00] VITALS: BP 126/86
--- NOTE | 2022-12-14 05:19 | NUR ---
PATIENTS LABS DRAWN FROM IJ. ALL LINES FLUSHED WITH 10ML NS. WASTED 10ML OF BLOOD AND DISCARDED. CLAVES CHANGED AND BLUE AND BROWN LUMENS HEP LOCKED. PATIENTS WHITE LUMEN PAUSED DURING BLOOD DRAW AND IS NOW INFUSING IV FLUIDS PER ORDER. PATIENT DENIES ANY [AIN OR NAUSEA AT THIS TIME. PATIENT IS RESTING IN BED. VITALS TAKEN AND RECORDED. MORALES EMPTIED. INTAKE AND OUTPUT RECORDED. PATIENT DENIES ANY FURTHER NEEDS. CALL LIGHT IN REACH.
--- NOTE | 2022-12-14 07:32 | NUR ---
Got report from strawhat sizer RN. Patient currently laying in bed. IV fluids running, patient denies needing anything at this time. Call light within reach.
--- NOTE | 2022-12-14 08:00 | NUR ---
IN TO ROOM TO SEE PATIENT. PATIENT AWAKE STATING SHE IS FEELING MUCH BETTER. PATIENT CURRENTLY LIVES IN A HOME WITH HER DOG. SHE HAS 3 STEPS LEADING INTO THE HOME WITH NO HAND RAIL. NO DME NEEDS AT THIS TIME. PATIENT IS EMPLOYEED AND DOES NOT REQUIRE ANY FINANCIAL ASSISTANCE. PATIENT STATES SHE IS FEELING WELL ENOUGH TO DISCHARGE TODAY. WILL UPDATE MD. WILL CONTINUE TO CHECK IN WITH PATIENT DURING HER STAY.
[2022-12-14 09:08] VITALS: BP 134/71
--- NOTE | 2022-12-14 09:30 | NUR ---
into see patient. Patient advised that she was overall doing well. This nurse advised that ordered patient magensium and potassium. advised that patient just got pain medication IV for abdominal pain. Unable to give oral as patient started to dry heave after given oral antibiotic. Per he is going to order a CT scan today.
--- NOTE | 2022-12-14 09:46 | NUR ---
Patient up and walked two laps around med sug floor with no complications. No dizziness.
--- NOTE | 2022-12-14 10:25 | NUR ---
IMAGING CALLED AND ADVISED NURSE THAT THEY NEED AN IV IN PATIENT TO DO THE CONOTRAST. SHE CURRENTLY ONLY HAS AN IJ SHE IS A HARD STICK. FLOAT NURSE TRIED TO START IV AGAIN THIS MORNING BUT NO LUCK. PHONE CALL TO HE WILL CALL BACK WHEN HE IS OUT OF HIS OFFICE VISIT.
--- NOTE | 2022-12-14 10:52 | NUR ---
Float nurse was able to get a IV in patient, painful to flush. Imaging came up and saw patient and advised since IJ is central line they can use it. Patient did try to take some sips of water before going to CT and had 200 emesis out less then 5 minutes after drinking water.
--- NOTE | 2022-12-14 11:12 | NUR ---
Patient back from CT. Patient hooked back up to magenisum and fluids. Cruz bag emptied. Patient would like to take a rest at this time. Call light within reach. Denies any other cares.
--- NOTE | 2022-12-14 11:42 | NUR ---
INTO VISIT WITH PATIENT IN REGARDS TO CT FINDINGS. SHE WILL CONTACT IN REGARDS TO THIS.
--- NOTE | 2022-12-14 12:04 | NUR ---
PATIENT REQUESTING PAIN MEDICATION. PAIN 12/12. DENIES WANTING TO TRY TYLENOL OR TORADOL AT THIS TIME. SHE WOULD LIKE TO GET THE PAIN DOWN TO WHERE SHE CAN TOLERATE IT AND THEN START USING ORAL TYLENOL.
--- NOTE | 2022-12-14 12:19 | NUR ---
POTASSIUM STOPPED AND ROCEPHIN RUNNING ITS ONLY A 30 MINUTE ANTIBIOTIC AND THEN WE CAN REMOVE MORALES AND TRIAL FOR VOIDING. AFTER ROCEPHIN DONE THIS NURSE WILL HOOK PATIENT BACK UP TO POTASSIUM.
--- NOTE | 2022-12-14 12:30 | NUR ---
Patient used call light to call nurse station as she was having trouble breathing. Rocephin was started 15 minutes before she called. This nurse, HORSE GROOMER, and charge nurse into patients room. Patient bent forward in hospital bed holding her chest. Oxygen placed on patient 2L, vitals done and Rocephin stopped and flushed with NS. Patient also itching on her left side of the neck causing it to bleed. Patient monitored and advised and medications ordered and given. Patient chest pain and SOB improved. Hydrocortosone cream applied to areas on neck and chest. Oxygen taken off of patient about 30 minutes after reaction. Patient on pulse ox and will continue to monitor and remove if she continues to hold her oxgyen. Patient states she is very tired now and is resting in bed. Patient has LR and potassium hooked back up and running. Rocephin will be added to her allergy list. Allergy armband placed.
[2022-12-14 12:32] VITALS: BP 147/104
[2022-12-14 12:42] VITALS: BP 132/81
--- NOTE | 2022-12-14 13:07 | NUR ---
CONNECTED WITH PT SHE WAS AMBULATING IN HALLWAY, GAVE SUPPORT AND ENCOURAGEMENT-PT ACKNOWLEDGED. WILL FOLLOW
--- NOTE | 2022-12-14 14:33 | NUR ---
ORDERS PER TO HAVE XRAY DONE TO CHECK PLACEMENT OF CENTRAL IJ LINE. AFTER XRAY ADVISED CENTRAL LINE NEEDS TO BE PULLED OUT 6CM. CHARGE NURSE, AND THIS NURSE INTO PATIENTS ROOM TO ADJUST LINE. PATIENT TOLERATED WELL. DR. MALCOLM WILL BE BY SHORTLY TO SUTURE IN LINE. PATIENT ADVISED TO TRY TO NOT MOVE AROUND TO MUCH THE SUTURES HAVE NOT BEEN PLACED YET. ANOTHER XRAY WAS TAKEN AFTER ADJUSTMENT. PER IV FLUIDS AND POTASSIUM WILL BE HELD UNTIL IS INTO SEE PATIENT.
--- NOTE | 2022-12-14 15:10 | NUR ---
PATIENT UP AND WALKING HALLWAY.
--- NOTE | 2022-12-14 16:00 | NUR ---
PATIENT GIVEN 0.5MG OF IV DILAUDID FOR 6/10 PAIN.
[2022-12-14 16:19] VITALS: BP 137/62
--- NOTE | 2022-12-14 16:30 | NUR ---
PATIENT COMPLAINING OF CHEST PRESSURE AND TROUBLE TAKING A DEEP BREATH. VITALS DONE ON PATIENT. PATIENT DOES NOT WANT NURSE TO TELL PROVIDER AT THIS TIME. SHE WOULD LIKE TO JUST SLEEP IT OFF. AFTER VITALS TAKEN PATIENT ADVISED THIS NURSE THAT THE PAIN WAS BETTER. THIS NURSE ADVISED OF PATIENT FINDINGS AND HE WILL GO IN AND SEE PATIENT.
--- NOTE | 2022-12-14 17:06 | NUR ---
PATIENT STARTED TO VOMIT UP HER TEA. PATIENT PASSED OUT FOR ABOUT 5 SECONDS 3 TIMES DURING HER VOMITING. PATIENT BECAME SO WEAK IT TOOK FURNITURE REPAIRER AND THIS RN TO HOLD PATIENT UP WHILE SHE VOMITED. DR. CHI AND ADVISED. PATIENT RESTING WITH HOB ELEVATED.
--- NOTE | 2022-12-14 18:02 | NUR ---
PATIENT UP TO WALK THE HALLWAYS. PATIENT TRIED TO DO 3 LAPS INSTEAD OF 2. PATIENT BECAME SOB AT THE END OF THE LAST LAP. BACK TO HER ROOM AND PATIENT SAT ON BED AND LAID ON HER SIDE AND WAS WHAT LOOKED LIKE ASLEEP. PATIENT WOKE UP WHEN THIS NURSE SAID HER NAME. PATIENT STRAIGHTENED OUT IN BED AND HEART RATE ON TELE WENT UP IN THE 150'S AND THEN BACK DOWN TO 45'S. DR. CHI ON FLOOR AND ADVISED.
--- NOTE | 2022-12-14 18:08 | NUR ---
PER DR.OLSEN NINO TO USE CENTRAL LINE AGAIN. WILL HOOK PATIENT BACK UP TO POTASSIUM.
--- NOTE | 2022-12-14 18:19 | NUR ---
PATIENT WOULD LIKE TO TRY TYLENOL FOR HER PAIN THAT IS A 7/10 CURRENTLY ON THE RIGHT FLANK.
--- NOTE | 2022-12-14 19:33 | NUR ---
REPORT RECEIVED FROM DAY SHIFT RN. PT LYING IN BED ALERT AND ORIENTED. PT HAD 900 ML CLEAR EMESIS. DENIES NEEDS AT THIS TIME. WHITE BOARD UPDATED. CALL LIGHT IN REACH.
[2022-12-14 19:57] VITALS: BP 126/80
--- NOTE | 2022-12-14 20:30 | NUR ---
EVENING ASSESSMENT COMPLETE. SCHEDULED MEDS ADMIN PER EMAR. PT REPORTS RLQ PAIN THAT RADIATES TO FLANK AREA 01/11. PRN FOR PAIN ADMIN PER EMAR. PT SWALLOWED PO ABX WITH IMMEDIATE 50 ML EMESIS. CENTRAL FLUSHED FLUSHED PER PROTOCOL. BRISK BLOOD RETURN NOTED. SITE WNL. HEP LOCKED PER ORDER. TELE IN PLACE. HR 40-50'S. MORALES PATENT WITH CLEAR YELLOW URINE. PT DENIES QUESTIONS OR CONCERNS. CALL LIGHT IN REACH.
--- NOTE | 2022-12-14 23:37 | NUR ---
PT UP TO SHOWER INDEPENDENTLY. PT BECAME VERY WEAK AND SHAKY AT THE END OF THE SHOWER. THIS RN IN TO ASSIST PT GET DRESSED. 2PA BACK TO BED. CENTRAL LINE FLUSHED WITH NS TO RESTART FLUIDS. SALINE NOTED TO BUBBLE UNDER DRESSING. NO BLOOD RETURN FROM ALL THREE LUMENS. DR. MALCOLM NOTIFIED. TELEPHONE ORDERS RECEIVED TO DC CENTRAL LINE. ORDERS VERIFIED WITH READBACK METHOD.
[2022-12-15] VITALS (7 sets, daily range): BP systolic 110–134; BP diastolic 61–103
--- NOTE | 2022-12-15 00:39 | NUR ---
PATIENT INSTRUCTED ON REMOVAL OF CENTRAL LINE. PATIENT VERBALIZED UNDERSTANDING. WHILE OBSERVING THE CENTRAL LINE DRESSING IT WAS NOTED THAT DARK BLUE TIP COULD BE SEEN AND WAS NO LONGER INSIDE PATIENT. THIS RN DONNED STERILE GLOVES REMOVED DRESSING, APPLIED PRESSURE TO INSERTIONS SITE FOR 3 MIN EVEN THOUGH LINE WAS ALREADY OUT. NO BLOOD NOTED FROM INSERTION SITE. STERILZE PETROLEUM GAUZE PLACE OVER INSERTION SITE THEN OBSITE. PATIENT DID NOT TOLERATE ACTIVITY WELL. PATIENT WAS ANXIOUS AND RESTLESS DURING REMOVAL. PATIENT INSTRUCTED TO LAY SUPINE FOR 30 MIN. IT WAS NOTED BY THIS RN AND PATIENTS PRIMARY RN THAT THE PATIENT APPEARS TO HAVE SCRATCH SORENSON AND REDNESS AROUND INSERTION SITE. PATIENT STATED THAT "IT HAD BEEN ITCHING" SINCE SHE HAD A REACTION TO IV ABX ON DAY SHIFT. PATIENT DENIES ANY FURTHER NEEDS. CALL LIGHT IN REACH.
--- NOTE | 2022-12-15 02:11 | NUR ---
PT RESTING ON COUCH WITH EYES CLOSED. RESPIRATIONS EVEN. TELE #1. HR 50'S.
--- NOTE | 2022-12-15 03:04 | NUR ---
PT TRANSFERRED SELF TO COUCH BECAUSE "IT'S TOO BRIGHT" REFERRING TO LIGHT IN HALLWAY. INSTRUCTED PT TO UTILIZE CALL LIGHT FOR ASSISTANCE DUE TO WEAK GAIT. PT VERBALIZES UNDERSTANDING. DENIES FURTHER NEEDS.
--- NOTE | 2022-12-15 04:20 | NUR ---
PT RESTING ON COUCH. RESPIRATIONS EVEN. HR 50'S.
--- NOTE | 2022-12-15 05:30 | NUR ---
NOTED PT HR IN THE 120'S, PT BACK TO BED FROM THE COUCH. REQUESTED AND RECEIVED WARM BLANKET. FOUND NECK DRESSING LAYING ON THE BED, ASK PT ABOUT IT AND SHE SAID SHE RUBS THE RIGHT SIDE OF HER NECK, DON'T REMEMBER TAKING IT OFF. CLEANED AREA, NEW DRESSING APPLIED, PT STATED, "I DON'T REMEMBER MUCH ABOUT LAST NIGHT". BED ALARM PLACED FOR SAFETY, PT AWARE.
--- NOTE | 2022-12-15 05:58 | NUR ---
VS AND I&O OBTAINED. MORALES PATENT WITH QS CLEAR YELLOW URINE. PT REPORTS NAUSEA WITH NO EMESIS. PRN FOR N/V ADMIN PER EMAR. BOWEL TONES HYPOACTIVE. ABD SOFT. PT REPORTS SHE HAS HAD NO PO INTAKE THROUGH THE NIGHT. NO FURTHER NEEDS. CALL LIGHT IN REACH.
--- NOTE | 2022-12-15 06:02 | NUR ---
@[id number] DR MALCOLM CALLED, UPDATED ON PT, AWARE THAT PT HAD EMESIS SHORTLY AFTER ANTIBIOTIC GIVEN, NEAR 2014, AWARE NO PAIN MEDICATIONS WERE REQUIRED, AWARE THAT LAST "RETCHING" OCCURRED AFTER CL WAS REMOVED, NONE SINCE THEN. PLANS TO COME SEE PT, CL CART OUTSIDE PT DOOR.
--- NOTE | 2022-12-15 07:16 | NUR ---
REPORT RECEIVED FROM ZULY RAMOS. PT RESTING IN SUPINE POSITION WITH EYES CLOSED. RESPRIATIONS EVEN AND UNLABORED. TELEMETRY MONITORING SHOWS HEART RATE IN THE 60'S WITH SINUS RYTHM. PT ALLOWED TO REST. CALL LIGHT WITHIN REACH. BED RAILS UP.
--- NOTE | 2022-12-15 08:05 | NUR ---
MORNING ASSESSMENT AND MEDICAITON DUE. PT AWAKE AND ALERT. PT APPEARS VERY WEAK AND HAS TROBLE SITTING SELF UP IN BED. PT STATES "I NEED TO GO HOME TODAY." PT ACITNG FLOPPY AND UNABLE TO MOVE SELF ARROUND IN BED. THIS RN ASSIST PT WITH STTING UP. MEDICATION GIVEN. PLAN OF CARE EXPLAINED TO PT. PT THEN SITS UP INDEPENDANTLY STATING SHE IS GOING HOME "NO MATTER WHAT." PT THEN BEGINS VOMITING, DOSE NOT KEEP ABX DOWN. PT FLOPS SELF OVER THE EDGE OF BED WITH HAND ON THE FLOOR AND THEN STATES SHE IS UNABLE TO GET BACK INTO BED. PT ASSISTED BACK TO IN TO BED, AND THE REPEATS THIS ACTION (SITTING UP, FLOPPING OVER BED, CLEAR EMESIS, PLACING HER HANDS ON SPEEDY FLOOR AND STATING SHE CAN'T GET BACK INTO BED). PT ASSISTED BACK INTO BED A 2ND TIME. PT ORIENTED TO ALL BUT NO COOPERATIVE WITH ASSESSMENT QUESTIONS OR FOLLWOING ALL COMMANDS. PT DOES OPEN PHONE AND SEND TEXT MESSAGES INDPENDANTLY. LUNG SOUNDS CLEAR. HEART TONE REGULAR WITH SINUS RYTHEM SEEN ON MONITOR AND RATE OF 60 AT REST AND 80-100 WITH ACTIVITY/EMESIS. ABDOMEN SOFT AND NON TENDER, BOWEL TONES HEARD. ORDERS FROM DR. MALCOLM TO DC'D MORALES CATHETER. CATHETE DC'D PER PROTOCOL. BED ALARM PLACED AND BED RAILS UP X3. NO IV ACCESS SO PEPCID NOT GIVEN AT THIS TIME. PT DENIES PAIN AT THIS TIME. NO ADDITIONAL NEEDS AT THIS TIMD. CALL LIGHT WITHIN REACH. BED RAILS UP.
--- NOTE | 2022-12-15 09:17 | NUR ---
THIS RN TO ROOM WITH DR. MALCOLM AND DR. CHI, FOR ROUNDS. BOTH MD'S UPDATED ON PT ASSESSMENT AND STATUS. PLAN OF CARE DISCUSSED IN DETAIL WITH PT. ORDERS FOR MIDLINE. MIDLINE RN CALLED AND WILL COME TO PLACE. LINE. ORDERS GIVEN BY DR. MALCOLM TO MOVE PT TO ROOM CLOSER TO NURSES STATION FOR CLOSER OBSERVATION. CHARGE NURSE UPDATED. PT VERBALIZES UNDERSTANDING OF PLAN OF CARE AND STATES HER QUSTIONS HAVE BEEN ANSWERED. PT SITTING UP IN BED, TEXTING ON PHONE. NO ADDITIONAL NEEDS AT THIS TIME. BED RAILS UP. CALL LIGHT WITHIN REACH. BED ALARM ON.
--- NOTE | 2022-12-15 09:32 | NUR ---
PATIENT ASKED TO USE THE BATHROOM, DENIED WANTING TO USE COMMODE. PATIENT ONE PERSON MAX ASSIST TO BATHROOM, VERY UNSTEADY AND LOSING HER BALANCE, APPEARED TO PASS OUT SEVERAL TIMES ON THE TOILET, MAX ASSISTED BACK TO BED. PATIENT UNABLE TO VOID AT THIS TIME. TELE LEADS REPLACED WHEN PATIENT WAS BACK IN BED.
--- NOTE | 2022-12-15 09:48 | NUR ---
DILEEP MIDLINE NURSE, TO BEDSIDE FOR MID LINE START. PT TALKING WITH CASE MANAGEMENT. PT DISTRESSED ABOUT WANTING TO GO HOME. CASEMANAGEMENT HOLDIGN DISCUSSION WITH PT. MIDLINE NURSE WILL RETURN WHEN DISCUSSION IS COMPLETE. DR. MALCOLM STATES OK TO LEAVE PT IN RO0M 109 FOR NOW, BUT IF MID LINE IS LOST FOR ANY REASON PT NEED TO BE IN CLOSER OBERVATION ROOM. NO DRY HEAVING OR EMESIS SEEN AT THIS TIME. NO ADDITIONAL REQUESTS OR COMPLAINTS. CALL LIGHT WITHIN REACH. BED ALARM ON.
--- NOTE | 2022-12-15 10:03 | NUR ---
PT REQUESTS HER BLOOD SUGAR BE TAKEN, TAKEN =89. JELLO, JUICE, SAMOAN ICE AND CLEAR ENSURE AT BEDSIDE. DEONTE, CASE MANAGEMENT, REMAINS AT BEDSIDE. NO ADDITIONAL NEEDS. CALL LIGHT WITHIN REACH. BED RAILS UP.
--- NOTE | 2022-12-15 10:30 | NUR ---
ZULY FALK, BACK TO BEDSIDE FOR MID LINE PLACEMENT. MIDLINE PLACED PER PROTOCOL. BRISK BLOOD RETURN NOTED. IV FLUIDS RESTARTED, ABX GIVEN, AND MORNING DOSE OF PEPCID GIVEN (SEE MAR). BULKE DRESSING AND STOCKING NET PLACED AROUND MIDLINE SITE TO PREVENT DISLODGEMENT OF CATHETER. PT CONTINUES TO BE DISTRESSED REGADING SOCIAL/HOME LIFE SITUATION AND UPCOMING PLANS. THERAPUTIC COMMUNICATION DONE. SCRATCH SORENSON SEEN ON LEFT NECK, PT REPORTS SHE WAS SCRATCHING THIS AREA. PT DECLINES HYDROCORTISONE CREAM. PT REPORTS ONGOING NA[place], PO MEDICAITON HELD. PT INSISTS ON GETTING UP TO ABMBULATE PRIOR TO STTING UP IV INFUSION. PT REMINDED THAT SHE WAS FALLING OUT OF BED AND TOO WEEK TO GET UP THIS MORNING WELL WEAK AND FAINTING IN THE RESTOOM WITH ZULY HARDEN (SEE NOTE). PT CONTINUES TO INSIST THAT SHE NEEDS TO AMBULAT. PT GET UPS UP OUT OF BED AND STARTS WALKING. THIS RN FOLLOWS WITH WHEELCHAIR. PT AMBULATES X1 LAP IN NGUYEN AND OUT TO CARDIOVASCULAR INVASIVE SPECIALIST OF HOSPITAL BEFORE BECOMING TOO WEEK TO CONTINUES. PT WHEELED BACK TO MED/SURG BY THIS RN, 1 PERSON ASSIST INTO BED. HEART RATE UP TO 115 WITH AMBULATION IN SINUS RYTHM. SLOWS TO 60-70'S WITH REST. IV MEDICITONS RESTARTED. NO ADDITIONAL REQUESTS OR COMPLAINTS. CALL LIGHT WITHIN REACH. BED RAILS UP. BED ALARM ON.
--- NOTE | 2022-12-15 11:27 | NUR ---
MIDLINE INSERTION NOTE: ASKED BY DR. MALCOLM TO EVAL PATIENT FOR POTENTIAL MIDLINE PLACEMENT. PT HAS POOR IV ACCESS AND IN NEED OF IVF PLUS ANTIBIOTICS. PT'S RIGHT ARM EVALUATED FIRST USING SITE RITE U/S. VEINS ARE SMALL ON THIS ARM AND DID NOT SEEM TO BE ADEQUATE FOR MIDLINE PLACEMENT. LEFT ARM THEN EVALUATED AND BASILIC, BRACHIAL, AND CEPHALIC ALL IDENTIFIED. CEPHALIC WAS THE BEST CHOICE, AND PER SITE RITE, A 4FR WOULD CONSUME 20% OF VEIN DIAMTER. A 20 G MIDLINE CATHETER 10 CM IN LENGTH WAS CHOSEN (POWERGLIDE PRO) FOR THIS VEIN. PT GAVE VERBAL CONSENT FOR THIS MIDLINE, AND ALL RISK, BENEFITS, AND POTENTIAL COMPLICATIONS WERE DISCUSSED. PT'S SKIN WAS PREPPED WITH CHLORAHEXADINE AND 1% LIDOCAINE WAS USED TO NUMB AREA DIRECTLY WHRE MIDLINE WOULD BE INSERTED. PT TOLERATED THIS WELL. THEN ARM WAS STERILLY PREPPED PER MIDLINE ROUTINE PROCEDURE FOLLOWING [facility] RECOMMENDATIONS FOR STERILE PROCEDURE. MIDLINE WAS EASILY ACCESSED AND INTRODUCED INTO CEPHALIC VEIN. TIP OF CATHETER WAS WALKED IN FAR POSSIBLE BEFORE THE GUIDEWIRE, FOLLOWED BY THE CATHETER WERE ADVANCED. BRISK, NON PULSATILE BLOOD RETURN WAS APPRECIATED. PT TOELRATED PROCEDURE WELL. STERILE DRESSING, INCLUDING BIO PATCH AND SECUREMENT DEVICE WERE PLACED ON SITE. EDUCATION MATERIAL WAS LEFT WITH PATIENT. REPORT GIVEN TO ZULY HORN WHO IS CARING FOR PATIENT.
--- NOTE | 2022-12-15 11:30 | NUR ---
THIS RN TO ROOM TO CHECK ON PT. PT RESTING ON RIGHT SIDE WITH EYES CLOSED, RESPIRATIONS EVEN AND UNLABORED. HEART RATE 80'S WITH SINUS RYTHEM SEEN ON MONITOR. PT ALLOWED TO REST. CALL LIGHT WITHIN REACH. BED RAILS UP. BED ALARM ON.
--- NOTE | 2022-12-15 12:01 | NUR ---
LUNCH DELIVERED TO PT. PT DRINKS 200ML OF JUICE AND JELLO AND THEN IMMIDATLY HAS 300ML JELLO COLORED EMESIS. PT CONFIRMS ONGOING NAUSEA STATING "DONT' TELL THE DOCOTOR" AND REPORTS 6/10 PAIN IN RIGHT SIDE AND FLANK. PT REMAINS SADDENED THAT SHE IS NOT HOME AT THIS TIME. SEE MAR FOR MEDICATIONS GIVEN. PT DENIES NEED TO VOID AT THIS TIME. PT CONTINUES RESTING ON BACK IN BED. PT DENIES ADDITIONAL REQUESTS OR COMPLAINTS. CALL [facility] WITHIN REACH. BED ALARM ON.
--- NOTE | 2022-12-15 12:54 | NUR ---
THIS RN TO ROOM TO CHECK ON PT. PT RESTING IN BED WITH EYES CLOSED, IN SPUINE POSITION. MIDLINE INFUSING, WNL. RESPRIATIONS EVEN AND UNALBORED. HEART RATE IN THE 80'S PER TELEMETRY MONITORING WITH NORMAL SINUS RYTHEM SEEN. BED RAILS UP. CALL LIGHT WITHIN REACH. PT ALLOWED TO REST.
--- NOTE | 2022-12-15 13:10 | NUR ---
LATE ENTRY SPOKE TO PATIENT AT 1200 ABOUT THE DC PLAN. PATIENT WANTS TO GO HOME TODAY. MD PER PATIENT STATED THAT THE DOCTOR WANTS THE PATIENT TO GET IV ABX AND BE ABLE TO KEEP FOOD DO WITHOUT VOMITING. PRODUCTION LINE MECHANIC ENCOURAGED PATIENT TO FOLLOW MD'S ADVICE. THE PATIENT WAS INSTRUCTED TO CALL CASE MANAGEMENT FOR ISSUES CONCERNS THEY ARISE. PATIENT WANTS TO GO HOME TO GO ON TRIP TO [place] IN 2 DAYS.PATIENT UPSET ABOUT BEING IN HOSPITAL. PATIENT WILL FOLLOW DOCTORS ADVICE.
--- NOTE | 2022-12-15 14:31 | NUR ---
RECEIVED REPORT ON PT. PT RESTING IN BED COMFORTABLY. NO FURTHER NEEDS VOICED. CALL LIGHT IN REACH.
--- NOTE | 2022-12-15 14:35 | NUR ---
PT HAVING A DIFFICULT DAY-DESIRES TO DC SO MUCH MAYBE IN DENIAL OF HER MED SITUATION. HAVING TROUBLE WITH NAUSEA, HOPED FOR SOME ICE CREAM. PT EMOTIONAL AND BELIEVES SHE WILL BE FINE. PT STATED SHE IS TIRED OF MISSIONG OUT ON SO MUCH ALL HER LIFE. GAVE SUPPORT, PRAYED WITH PT. SHE BURIED HER HEAD. PT IS WORRIED SHE WILL LOSE HER JOB. WILL FOLLOW
--- NOTE | 2022-12-15 15:57 | EKG ---
[facility] [address] [facility] [address] [place] [address] Signed Marked sinus bradycardia T wave inversion in V1, V2 No previous ECGs available Confirmed by UNIQUE RODRIGES MD ([id number]) on 12/15/2022 3:57:31 PM Electronically Signed By: UNIQUE RODRIGES 12/15/22 1557 PATIENT NAME: VON SALOMON Electrocardiogram DATE OF : 89 PHYSICIAN: UNIQUE RODRIGES REPORT #: [id number] REPORT IS CONFIDENTIAL AND NOT TO BE RELEASED WITHOUT AUTHORIZATION
--- NOTE | 2022-12-15 16:07 | NUR ---
ROUNDED ON PT. WALKED IN HALLWAY. PT WAS STEADY ON HER FEET THE ENTIRE WALK. DENIES NAUSEA AND VOMITING. ATE SOME CRACKERS AND PUDDING. GAVE PT MORE APPLESAUCE AND JELLO. PT RESTING COMFORTABLY IN BED NO FURTHER NEEDS VOICED.
--- NOTE | 2022-12-15 17:21 | NUR ---
ROUNDED ON PT. PT REPORTED SHE VOMITED AN HOUR AGO BUT DISPOSED OF IT HERSELF. PT TURNED OFF HER BED ALARM TO AMBULATE IN THE ROOM. BED ALARM TURNED BACK ON AND NO FURTHER NEEDS VOICED.
--- NOTE | 2022-12-15 18:15 | NUR ---
ROUNDED ON PT. PT COMPLAINED OF PAIN IN MIDLINE. MIDLINE FLUSHED AND PATENT WITH BLOOD RETURN. RECONNECTED TO IV FLUIDS. PT HAS NOT VOIDED AND REFUSED BLADDER SCAN. AGRTEED TO BLADDER SCAN IN 30 MINUTES IF NO SUCCESSFUL VOID BY THEN.
--- NOTE | 2022-12-15 19:15 | NUR ---
shift report received from flakita paris at bedside. pt awake and resting in bed, eyes watery. therapeutic communication provided. pt states, "can you call dr ortiz and ask him if he'll discharge me tonight on oral antibiotics". pt educated that she is still having emesis and unable to keep food down. flakita paris reports pt recently ate mcdonalds and then threw part of it up. friend also in room and visiting pt. pt educated that if midline goes bad pt will have to be moved to closer observation. iv midline recently changed, dressing c/d/i at this time, fluids infusing wnl. pt denies pain at midline site. pt educated to use call light w/ any concerns regarding iv site. pt verbalized understanding. call light in reach. will continue to monitor.
--- NOTE | 2022-12-15 19:22 | NUR ---
THIS RN TO ROOM TO ASSIST WITH MID LINE. PTS RN REPORTS THAT PT WAS PICKING AT MIDLINE DRESSING AND RUBBING MID LINE AREA REPORTING THE DRESSING AND LINE "HURT" AND WERE BOTHERSOME. LINE FLUSHED. MILD LEAKING SEEN, NO ARM SWELLING SEEN. BULK DRESSING AN REMOVED, LINE SEEN TO LEAK WITH FLUSH FROM CONECTION SITE. DRESSING MOIST. DRESSING REMOVED AND NEW DRESSING PLACED PER PROTOCOL. LINE NOW FLUSHES WELL WITH BRISK BLOOD RETURN AND NO LEAKING SEEN. IV FLUIDS RESTARTED. BULK DRESSING ARROUND MIDLINE SITE REAPPLIED. PTS FRIEND ARRIVED TO BEDSIDE DURING DRESSING CHANGE WITH MCdONALS. PT TAKES A FEW BITES OF MCDONALDS AND HAS 100ML FOOD EMESIS. PT TAKES SIPS OF WATER AND HAS EMESIS WITH THIS WELL. PTS PRIMARY RN UPDATED. BED RAILS UP. CALL LIGHT WITHIN REACH. PT CONTINUES VISITING WITH HER FRIEND AND DENIES ADDITIONAL REQUESTS OR COMPLAINTS.
--- NOTE | 2022-12-15 20:15 | NUR ---
pt'S FRIEND OUT OF ROOM. IV PUMP ALARMING MINUTES AFTER. THIS RN IN ROOM TO ASSESS MIDLINE. pt RESTING IN BED WITH EYES CLOSED. MIDLINE DRESSING SATURATED WITH SS DRAINAGE. ZULY ADAM IN ROOM WITH THIS pt. DRESSING TAKEN DOWN. HOLE NOTED IN MIDLINE CATHETER AT INSERTION SITE, SALINE SHOOTS IN AIR WHEN FLUSHED, BRISK BLOOD RETURN NOTED. ATTEMPT TO HOLD PRESSURE ON CATHETER SITE, CONTINUES TO LEAK. pt RESTING IN BED, PRIMARY RN NOTIFIED.
--- NOTE | 2022-12-15 20:22 | NUR ---
CINDY CARUSO CALLED THIS RN IN ROOM TO ASSIST IN ASSESEING PATIENTS MIDLINE. MIDLINE COVERED WITH GAUZE DRESSING AND NOTED TO BE SOAKED. GAUZE DRESSING REMOVED FROM OVER MIDLINE. MIDLINE DRESSING INTACT BUT SATURATED UNDERNEATH. ATTEMPTED TO FLUSH MIDLINE. MIDLINE LEAKING OUT FROM UNDER DRESSING. CINDY RN WENT TO [employer] TO GET NEW DRESSING FOR MIDLINE. THIS RN OPENED CURTAIN AND STEPPED OUT OF ROOM TO GET NEW DRESSING FROM CENTRAL LINE KIT OUT OF THE ROOM. WHEN THIS RN TURNED AROUDN PATIENT HAD HANDS ON MIDLINE AND SCRATCHING AT IT. IT WAS NOTED BY THIS RN AND CINDY CARUSO TO HAVE FINGER INDENTS IN GEL PATCH AROUND INSERTION SITE OF MIDLINE. MIDLINE DRESSING REMOVED AND MIDLINE ASSESED. MIDLINE DRAWS BACK BLOOD BUT WHEN THIS RN ATTEMPTED TO FLUSH MIDLINE THE SALINE SQUIRTED OUT RIGHT BELOW INSERTION SITE ALL OVER THIS RNS SCRUBS. NEW DRESSING PLACED OVER MIDLINE AND MEGAN CARUSO NOTIFIED. EDUCATED PATIENT TO NOT TOUCH MIDLINE.
--- NOTE | 2022-12-15 20:45 | NUR ---
DR MALCOLM CALLED REGARDING LEAKING IV MIDLINE, SEE PREVIOUS RN NOTE FROM MILLICENT ADAM. TELEPHONE ORDERS READ BACK TO LEAVE IV MIDLINE IN PLACE, SALINE LOCKED AND TO HAVE OFFICE ASSISTANCE PUT A CALL OUT FOR PICC TEAM TO ASSESS IV MIDLINE IN THE MORNING. pt CAN HAVE ORAL INTAKE TOLERATED AND MANAGE SYMPTOMS WITH PRN PO MEDS. FRESH ICE WATER AND LIQUID DIET CHOICES DISCUSSED AND JELLO AND APPLESAUCE BOTH PROVIDED pt REQUESTING SNACK. VSS. PRN TYLENOL GIVNE FOR REPORTED 6/10 BACK/RIGHT FLANK PAIN. pt DECLINED CARAFATE, STATING, "IT SOMETIMES UPSET MY STOMACH". pt STATES, "I THINK I'LL BE GOING HOME IN THE MORNING". pt HAS A TRIP TO BROAD TOP PLANNED ON AND VERBALIZES INTENT TO STILL GO ON TRIP. BED ALARM ON FOR SAFETY AND CALL LIGHT IN REACH. pt DENIES NEED TO VOID, WILL MONITOR.
--- NOTE | 2022-12-15 21:11 | NUR ---
BED ALARM SOUNDING. pt STATES "I JUST ROLLED OVER I PROMISE". pt ATTEMPTING TO TURN OFF BED ALARM. RN TURNS BACK ON, INSTRUCTED TO USE CALL LIGHT BEFORE GETTING OUT OF BED. CALL LIGHT IN REACH.
--- NOTE | 2022-12-15 21:29 | NUR ---
PHONE CALL FROM CCU, NOTIFIED INCREASED HEART RATE, RHYTHM CHANGE. pt RESTING IN BED WITH EYES CLOSED, BREATHING UNLABORED. NO MOVEMENT IN BED. RN BACK TO NURSES STATION, SR ON TELE.
--- NOTE | 2022-12-15 21:44 | NUR ---
BED ALARM SOUNDING. THIS RN IN ROOM. pt SITTING UP IN BED, GRASPING CHEST WITH BOTH HANDS. COMPLAINS OF CHEST PAIN. STATES "I'M FINE THOUGH, IT'S GETTING BETTER. pt LAYS BACK DOWN. CCU REPORTS SOME BEATS OF VTACH ON TELE NOTED. RT NOTIFIED FOR EKG. ORDER PLACED. SCUBA DIVER IN ROOM FOR VS. RN MEGAN CALLS MD AT THIS TIME.
--- NOTE | 2022-12-15 21:52 | NUR ---
INFOMRED BY SAMPLE SHOE INSPECTOR AND REWORKER BAILEY, pt'S BED ALARM GOING OFF AND UPON ENTERING pt ROOM pt WAS FOUND BY SAMPLE SHOE INSPECTOR AND REWORKER SITTING UP IN BED HOLDING HER CHEST. THIS RN IN ROOM, RT ALREADY AWARE AND PREPARING EKG. pt NOW LAYING FLAT IN BED AND DENIES CHEST PAIN, STATING IT LASTS FOR 20 SECONDS AND DID NOT RADIATE. HR 71, BP 120/103. CCU CALLED AND REPORTED THERE COULD BE BEATS OF V TACH BUT UNSURE D/T ARTIFACT. DR CHI MADE AWARE OF ABOVE INFOMRATION, TELEPHONE ORDER TO CONTINUE WITH EKG AND MD TO COME TO RN STATION AND REVIEW EKG RESULTS. SAMPLE SHOE INSPECTOR AND REWORKER BAILEY UPDATED AND AWARE.
--- NOTE | 2022-12-15 22:10 | NUR ---
BED ALARM SOUNDING. THIS RN IN pt ROOM. LEGS IN FROG POSITION AND HANGING OFF BED. pt LYING FLAT. BREATHING LABORED. pt ASKED WHATS GOING ON. COMPLAINS OF CHEST PAIN AGAIN, STATES "IT ALREADY WENT AWAY". BRIEFLY NAUSEOUS PER pt. EMESIS BAG PROVIDED, NO EMESIS. pt STATES "IT ALREADY PASSED". HOB ELEVATED BY RN. BED ALARM ON. pt DENIES DRINKING WATER, DESPITE HALF OF CUP BEING EMPTY AT THIS TIME, FULL CUP WAS PROVIDED BY ZULY GUZMAN.
--- NOTE | 2022-12-15 22:52 | NUR ---
pt REQUESTING TO WALK IN THE HALLWAY, pt DENIED CHEST PAIN DURING AMBULATION. HR WAS UP TO 123-HIGHEST NOTED BY THIS RN. HR SEEN MAINLY SUSTAINING IN THE ONE TEENS, NO SOB NOTED. pt AT ONE POINT STATES, "I'M JUST SO FRUSTRATED, I'M LEAVING TOMORROW, EVEN IF IT'S AMA. I NEED TO LEAVE FOR MY TRIP". pt REPORTS EAING ALL OF APPLESAUCE AND JELLO PROVIDED EARLIER IN THE SHIFT, ADDITIONAL SNAKC PROVIDED. CALL LIGHT IN REACH.
--- NOTE | 2022-12-15 23:16 | NUR ---
DRESSING TO RIGHT NECK FROM PULLED CENTRAL LINE CLEANED AND REDRESSED THE OLD ONE WAS LOOSE. DRESSING ABLE TO TAKEN OFF AT 24 HR JESSICA PER PROTOCOL, AT APPROX 0030. pt AWARE. SNACK PROVIDED, pt REQUESTING SANDWICH BOX, DISCUSSED WITH MANAGER OF IT. SNACK PROVIDED, pt STATES, "I WANT TO SHOW GOLD THAT I CAN EAT SOMETHING SUBSTANIAL AND KEEP IT DOWN". CALL LIGHT IN REACH.
--- NOTE | 2022-12-16 00:01 | NUR ---
PHONE CALL FROM CCU, TELE LEADS OFF. pt LYING IN BED ON RIGHT SIDE. TELE LEADS GRASPED IN HANDS. pt NOT EASY TO AROUSE, BREATHING UNLABORED. pt AWAKENED WITH RN SHAKING ARM AND CALLING pt'S NAME REPEATEDLY. pt LAYS OVER SIDE OF BED TO VOMIT. RN MEGAN IN ROOM. pt RETCHING, MINIMAL OUTPUT. pt SITS UP BRIEFLY AND EYES ROLL BACK, pt LAYS OVER SIDE OF BED AGAIN. INSTRUCTED TO REPOSITION IN BED. TELE LEADS REPLACED. SBA TO RESTROOM FOR ATTEMPT TO VOID, NO VOID AT THIS TIME. pt REQUESTING TO SLEEP IN CHAIR, CHAIR ALARM PLACED. pt STATES CAN'T WE JUST REMOVE THE TELE FOR TONIGHT SINCE I'M GOING HOME TOMORROW. EDUCATION PROVIDED ON PLAN OF CARE, NO DISCHARGE ORDERS AT THIS TIME. CALL LIGHT AND PERSONAL SUPPLIES IN REACH.
--- NOTE | 2022-12-16 00:13 | NUR ---
NOTIFIED BY CCU THAT TELE LEADS ARE OFF. PRIMARY RN MEGAN IN ROOM.
--- NOTE | 2022-12-16 00:20 | NUR ---
TELE LEADS FOUND OFF OF pt, THIS RN IN ROOM TO PLACE TELE BACK IN PLACE. pt FOUND IN CHAIR, CRYING ABOUT HOSPITALIZATION. THERAPEUTIC COMMUNICAITON PROVIDED, pt THEN STOOD UP TO GO BACK TO BED PER pt REQUEST. pt'S EYES ROLLED BACK IN HER HEAD AND SHE BEGAN TO FAINT, pt CAUGHT UNDER ARMPITS BY THIS RN AND RAPID RESPONSE CALLED. pt STERNAL RUBBED BY TENTER BAILEY, RADIAL HEARTBEAT FELT. pt ASSISTED INTO CHAIR, pt AWOKE AFTER APPROX 30 SECONDS AND REPEATEDLY MAKES STATEMENTS SUCH "OH I'M FINE, DON'T CALL ANYONE. I'M FINE". VS COLLECTED AND STABLE. pt DENIES CHEST PAIN, SOB. pt STOOD WITH ASSIST FROM CHAIR TO BED. BS CHECKED AT 0023-RESULT 116. pt ASSESSED BY ED DOC. DR CHI UPDATED AND MADE AWARE. DR CHI AT RN STATION AT 0039 AND ASSESSED pt. EKG ORDER PLACED BY MD CHI AND HE REVIEWED EKG RESULTS. pt REMAINS IN BED, AWAKE AND ATTEMTPTING TO GO BACK TO SLEEP, SLEEP MASK PROVIDED. TELE REMAINS IN PLACE, HR WNL. pt BLADDER SCANNED FOR 459, pt ATTEMTPED TO VOID EARLIER IN SHIFT, BUT UNABLE. VERBAL ORDER READ BACK FROM DR CHI TO DO STRIGHT CATH X1 IF pt ALLOWS/AGREES. pt HX OF DIFFICULT CATH, REQUIRED MULTIPLE STAFF MEMEBERS/ATTEMPTS. DISCUSSED WITH TENTER BAILEY, WILL ALLOW pt TO REST AND MONITOR AND STRAIGHT CATH PRN.
[2022-12-16 00:22] VITALS: BP 141/91
--- NOTE | 2022-12-16 01:00 | NUR ---
ZULY GUZMAN YELLS FOR THIS RN TO HELP. RN IN ROOM AT APPROX 0018. ZULY GUZMAN SUPPORTING pt, BODY LIMP, LEGS DANGLING WHEN RN ENTERS ROOM. pt THEN SPEAKS, ATTEMPTS TO WALK TO BED, STATES "I'M FINE, I JUST STOOD UP TO FAST." RECLINER MOVED BEHIND pt AND pt ASSISTED TO RECLINER CHAIR. UPON SITTING, pt LOSES CONSCIOUSNESS. SLUMPS BACK IN CHAIR AND TO RIGHT SIDE. pt DOES NOT AWAKEN TO VOICE AFTER SEVERAL SECONDS. BOOKKEEPING ASSISTANT CALLED. RADIAL PULSE PALPABLE. THIS RN STERNAL RUBS pt. AFTER >20 SECONDS, pt AWAKENS. pt ARGUES WITH STAFF STATING SHE DID NOT PASS OUT. ZULY ADAM AND SVITLANA HORN ALSO IN ROOM, WITNESS LOSS OF CONSCIOUSNESS. pt ASSISTED TO HOSPITAL BED. VSS. CBG 116. ER PHYSICIAN, DR. FORBES EVALUATING pt. MD PHONED BY PRIMARY RNMEGAN. TO FLOOR TO ASSESS pt, REVIEW EKG AND STRIPS.
--- NOTE | 2022-12-16 02:01 | NUR ---
ROUNDED ON pt, pt RESTING IN BED WITH EYES CLOSED. ON RA, RR EVEN AND UNLABORED. NO DISTRESS NOTED. CALL LIGHT IN REACH AND BED ALARM ON FOR SAFETY. TELE REMAINS IN PLACE, HR 70'S, NSR PER MONITOR.
--- NOTE | 2022-12-16 03:28 | NUR ---
rounded on pt, pt resting quietly in bed with eye mask in place. rr even and unlabored, no distress noted. bed alarm remains on for safety and call light in reach. tele also in place, hr 80's. will continue to monitor.
--- NOTE | 2022-12-16 04:30 | NUR ---
RR EVEN AND UNLABORED, NO DISTRESS NOTED. EYE MASK REMAINS IN PLACE, TELE ALSO ON. NSR, HR 70'S AT REST. pt APPEARS RELAXED AND CALM AT THIS TIME. CALL LIGHT IN REACH AND BED ALARM ON FOR SAFETY.
--- NOTE | 2022-12-16 05:10 | NUR ---
IN ROOM TO COMPLETE AM ASSESSMENT AND VS, VSS. pt AWOKE EASILY TO VOICE. DENIES CHEST PAIN AND NAUSEA AT THIS TIME. TELE IN PLACE, HR WNL. NSR PER MONITOR. DISCUSSED POC FOR STRAIGHT CATH PER MD ORDERS, pt STATES, "OKAY CAN WE LIKE DO IT IN LIKE 30 MINUTES, I'M REALLY TIRED". pt AGREES TO POC TO RETURN IN 30 MINUTES FOR STRAIGHT CATH. NO ADDITIONAL NEEDS OR CONCERNS VERBALIZED, CALL LIGHT IN REACH. BED ALARM ON FOR SAFETY.
[2022-12-16 05:15] VITALS: BP 118/70
--- NOTE | 2022-12-16 05:45 | NUR ---
pt INITIALLY WISHING TO CONTINUE TO WAIT FOR STRAIGHT CATH, pt EDUCATED ON IMPORTANCE TO EMPTY BLADDER IF UNABLE TO VOID REGULARLY. WITH HELP FROM [facility] ZULY MENDOZA, pt STRAIGHT CATHED X1, 850MLS OUTPUT NOTED. pt DENIED NEED TO VOID AND ALSO DENIED BLADDER RELIEF FOLLOWING STRIGHT CATH. AIR AND HYDRONIC BALANCING TECHNICIAN UPDATED.
--- NOTE | 2022-12-16 06:40 | NUR ---
dr ortiz made aware and updated on syncopal episode and chest pain earlier in the shift. also updated diana on everything the pt had for intake and that she had a scant amount of phlegm like emesis following her sandwich box. aware of uo and straight cath result of 850mls. telephone order read back to add on magnesium to already ordered am labs, gas charger bailey to place order.
--- NOTE | 2022-12-16 07:34 | NUR ---
REPORT RECEVIED FROM ZULY GUZMAN, PT RESTING IN BED WITH EYES CLOSED, HEAD OF BED AT 10 DEGREES. BED RAILS UP. CALL LIGHT WITHIN REACH. PT ALLOWED TO REST.
--- NOTE | 2022-12-16 08:09 | NUR ---
Rich Serrato RN, in to attempt IV start. Patient refused IV start until she speaks with Dr. Butler. Dr. Butler notified by Marcel Saucedo RN.
--- NOTE | 2022-12-16 08:12 | NUR ---
COMPLIANCE INTERN, QUINCY, IN ROOM TO ATTEMPT AN IV START. HE REPORTS THAT PT REFUSED IV START UNTIL SHE SPEAKS WITH DR MALCOLM. CALLED TO LET HIM KNOW, HE STATES HE WILL BE IN LATER
[2022-12-16 09:13] VITALS: BP 111/95
--- NOTE | 2022-12-16 09:15 | NUR ---
ROUNDED ON PT. DISCUSSED BENEFITS OF ALLOWING STAFF TO ATTEMPT IV ON HER. PT AGREED TO LET ER NURSE START IV ON HER. IV STARTED SUCCESSFULLY. DISCUSSED RISKS OF TRAVEL WITH PT, BUT PATIENT WAS PERSISTANT ON TRAVELING. RN LEFT ROOM PATIENT VOICED NO FURTHER NEEDS.
--- NOTE | 2022-12-16 09:29 | NUR ---
PT VITALS/I&O'S TAKEM & DOCUMENTED. IN TO SPEAK W/PT AND PT TOLD HIM THAT SHE HAD NOT YET GOTTEN UP TO RESTROOM BECAUSE SHE DIDN'T KNOW IF SHE WAS STILL SUPPOSED TO BE STRAIGHT CATHED. AFTER LEFT ROOM SHE ASKED THIS BULL DRIVER TO STAY IN ROOM SO SHE COULD GET UP TO USE THE RESTROOM. PT WAS STEADY ON HER FEET, NOT SIGNS OF DIZZINESS OR DISCOMFORT. PT ABLE TO VOID 400 IN TOILET. PEROFORMED OWN PERICARE AND AM ADL'S. PT STATED THAT SHE IS "OVER IT AND READY TO GO HOME!" AND THAT "I HAVENT SLEPT SINCE WEDNESDAY AND I AM FINE!" RN NOTIFIED OF KEEPING FOOD DOWN AND VOID. NO OTHER NEEDS AT THIS TIME. BED ALARM OFF. CALL LIGHT IN REACH.
--- NOTE | 2022-12-16 09:44 | NUR ---
THIS RN TO ROOM WITH DR. MALCOLM FOR ROUNDS. UTILITY LINEMAN STATES PT WAS JUST UP WITH STAND BY ASSIT TO RESTROOM TO VOID. PT VOIDED 400ML CLEAR YELLOW URINE. PT STATES SHE WAS ABLE TO TOLERATE CREAM OF WHEET CEREAL FOR BREAFKAST AND REPORTS SHE IS STILL HUNGRY. CRACKERS, JELLO, APPLE SAUSE PROVIDED. DR. MALCOLM REVIEWS DISCHARGE INSTRUCTIONS WITH PT. PT VERBALIZES UNDERSTANDING. IV ABX STARTED THROUGH RIGHT FORARM IV LINE. NO ADDITIONAL NEEDS AT THIS TIME. CALL LIGHT WIHTIN REACH. BED RAILS UP.
[2022-12-16] MEDS ORDERED: ACETAMINOPHEN500 MG PO (09:48)
[2022-12-16] MEDS ORDERED: LEVOFLOXAC750 MG/150 IV (09:48)
--- NOTE | 2022-12-16 09:49 | NUR ---
SPOKE TO PATIENT ABOUT THE DISCHARGE PLAN. PATIENT STATES SHE WILL BE DISCHARGED TODAY AND THE PATIENT STATES SHE VANE BE GOING TO [place] THIS WEEK. PATIENT HAS NO GARMENT MANUFACTURING SUPERVISOR NEEDS AT THIS TIME.
[2022-12-16] MEDS ORDERED: LEVOFLOXACIN750 MG PO (09:59)
--- NOTE | 2022-12-16 10:23 | OR ---
[facility] [address], [place] [address] Signed DATE OF OPERATION: 12/13/2022 SURGEON: Eriberto Malcolm MD PREOPERATIVE DIAGNOSES: 1. Long-standing gastroparesis. 2. Persistent intractable vomiting with dehydration. 3. Difficult peripheral access. POSTOPERATIVE DIAGNOSES: 1. Long-standing gastroparesis. 2. Persistent intractable vomiting with dehydration. 3. Difficult peripheral access. PROCEDURES: 1. Ultrasound guidance to vascular access. 2. Right triple-lumen central venous catheter placement. ANESTHESIA: 1% lidocaine. INDICATION: This 32-year-old white woman was admitted by me yesterday with dehydration and intractable nausea and vomiting. She has underlying diagnosis confirmed by solid food emptying study in August of gastroparesis. She has particularly difficult peripheral access to begin with. She did get peripheral IV yesterday that was small and attempts of IV fluid resuscitation were marginal at best. Multiple various approaches for peripheral access were undertaken through the night and she continues to have intractable vomiting. A central venous catheter is necessary. The risk of bleeding, infection, need for chest tube should pneumothorax occur, and so forth were all reviewed in detail. She understands and wished to proceed. FINDINGS: Initial attempt at right internal jugular access was not forthcoming. On that basis, a SonoSite ultrasound was used for assistance. The internal jugular vein was lateral than anticipated, possibly related to her exceedingly good neck flexibility. Once identified, the right internal jugular vein was easily accessed. Dark nonpulsatile blood was noted from it. The catheter was placed without complication and postprocedure chest x-ray showed no evidence of complication including pneumothorax and tip of the catheter appears to be in the superior vena cava based on position of the tube in Electronically Signed By: ERIBERTO MALCOLM MD 12/16/22 1023 PATIENT NAME: VON SALOMON OPERATIVE REPORT DATE OF : [birth year] REPORT #: [id number] PHYSICIAN: ERIBERTO MALCOLM MD PCP: MIKE PRYOR MD REPORT IS CONFIDENTIAL AND NOT TO BE RELEASED WITHOUT AUTHORIZATION [facility] [address], [place] [address] Signed relation to sternotomy wires from the past. DESCRIPTION OF PROCEDURE: In the Trendelenburg position, the head was directed to the left anterior neck and subclavian area was prepared with a chlorhexidine solution and draped sterilely with the drape provided in the Arrow PowerPort blue triple-lumen catheter kit. 1% lidocaine was injected over the midportion of sternocleidomastoid muscle superiorly and inferiorly in relation to the external jugular vein. Initial access without ultrasound was unsuccessful and on that basis, a SonRealTargeting ultrasound device was obtained. Interrogation of the neck showed the vein and artery quite clearly, but far more lateral than generally expected. With direct use of the ultrasound, the vein was accessed showing dark nonpulsatile blood. A flexible J-wire was passed down the needle and the needle was removed. The site was incised with an 11 blade and dilated with a blue dilator and a previously inspected Arrow blue triple-lumen catheter passed over the wire without problem. Withdrawal of the wire allowed for aspiration on the distal port showing dark nonpulsatile blood. was applied in the catheter, flushed with saline. Ports were checked and widely patent. The catheter was withdrawn a few centimeters given her relatively small size and secured to the neck with the enclosed nylon suture device and a white collar. An anti-infective disk was applied as was an adhesive dressing. A chest x-ray was performed, which confirmed no evidence of complication and the tip of the catheter believed to be in the atriocaval junction. MD FITZ Ziegler/MONTY /[id number] cc: Electronically Signed By: ERIBERTO MALCOLM MD 12/16/22 1023 PATIENT NAME: VON SALOMON OPERATIVE REPORT DATE OF : [birth year] REPORT #: [id number] PHYSICIAN: ERIBERTO MALCOLM MD PCP: MIKE PRYOR MD REPORT IS CONFIDENTIAL AND NOT TO BE RELEASED WITHOUT AUTHORIZATION [facility] [address] [place] [id number] Signed Copies: ~ Electronically Signed By: ERIBERTO MALCOLM MD 12/16/22 1023 PATIENT NAME: VON SALOMON OPERATIVE REPORT DATE OF : [birth year] REPORT #: [id number] PHYSICIAN: ERIBERTO MALCOLM MD PCP: MIKE PRYOR MD REPORT IS CONFIDENTIAL AND NOT TO BE RELEASED WITHOUT AUTHORIZATION
--- NOTE | 2022-12-16 10:23 | HP ---
[facility] [address] [place] [address] Signed ADMISSION DATE: 12/12/2022 REASON FOR ADMISSION: Significant dehydration, protracted vomiting, known underlying gastroparesis, and minimal hematemesis. 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 She is well known to me from the past. She has a cristina leah diagnosis of gastroparesis. I have worked with her in the past on this. Indeed, she underwent a gastric emptying study under my direction August 10, 2022, at the time of exacerbation of her symptoms. This confirmed delayed solid gastric emptying. Her retention of gastric solid food contents at 1 hour was 89%, at 2 hours 72%, 3 hours 46%, and 4 hours 27%. She has had a variety of treatment approaches in the past. She is most dominantly not tolerant of the Reglan or Compazine causing essentially anxiety-type symptoms. I was asked by her friend and mother figure, Rosy Hernandez RN, yesterday to assist with her having significant dehydration. I saw her in the day surgery area and she got 2 L of lactated Ringer's solution, which made her feel much better as she was having significant intolerance of oral intake and vomiting. Lab studies obtained were normal at that time. I was called by the patient this morning at home, noting that she has had recurrence and persistence of her symptoms. She wished to have an outpatient trial of therapy and she was given Phenergan 25 mg suppository 1 VA or PV q.6 hours. I asked her to call me later in the day if this was not effective and it was not. In the meantime, she has had protracted vomiting and even a small amount of hematemesis, certainly well less than a half a cup of blood. She is not known to have underlying peptic disease. She does not know whether or not she may have had upper endoscopy in the past. The patient has had various adverse experiences through the emergency room in the past. 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 She did suffer COVID infection in the past prior to February of 2022. At present, she is clinically dehydrated; she has thirst and vomiting as previously noted. She is anticipating a trip to [place] on Wednesday DICTATION ENDS HERE. Electronically Signed By: ERIBERTO MALCOLM MD 12/16/22 1023 PATIENT NAME: VON SALOMON HISTORY AND PHYSICAL DATE OF : [birth year] REPORT #: [id number] PHYSICIAN: ERIBERTO MALCOLM MD PCP: MIKE PRYOR MD REPORT IS CONFIDENTIAL AND NOT TO BE RELEASED WITHOUT AUTHORIZATION [facility] [address] [place] [id number] Signed MD FITZ Ziegler/LUÍSL /[id number] Copies: ~ Electronically Signed By: ERIBERTO MALCOLM MD 12/16/22 1023 PATIENT NAME: VON SALOMON HISTORY AND PHYSICAL DATE OF : [birth year] REPORT #: [id number] PHYSICIAN: ERIBERTO MACLOLM MD PCP: MIKE PRYOR MD REPORT IS CONFIDENTIAL AND NOT TO BE RELEASED WITHOUT AUTHORIZATION
--- NOTE | 2022-12-16 10:23 | HP ---
[facility] [address] [place], [place] [address] Signed ADMISSION DATE: 12/12/2022 REASON FOR ADMISSION: Clinical dehydration, protracted vomiting related to long-standing gastroparesis, and small amount of hematemesis. 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 This diagnosis was affirmed by a solid food emptying study performed under my direction in August of 2022. Specifically, her study showed a solid food retention at 1 hour of 89%, at 2 hours of 72%, 3 hours of 46%, and 4 hours of 27%. She has been treated with various medications over time, most notably intolerant of Compazine and Reglan causing symptoms of anxiety and so on. I was asked by her friend and confidant, Rosy Hernandez RN, to assist with hydration as she had been having protracted vomiting over the preceding several days. Yesterday, she had 2 L of lactated Ringer's solution administered with benefit. She has been using Zofran sublingual without much benefit. I was called by her in this morning noting protracted vomiting and later today a small amount of hematemesis. A trial of Phenergan suppository 25 mg q.6 hours was outlined earlier in the day and if not doing better, to let me know. On the basis of her persistence of symptoms and now some hematemesis, she is admitted for further evaluation and care. PAST MEDICAL HISTORY: Complex and outlined in the note from Dr. 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 CURRENT MEDICATIONS: Include Ativan as needed for anxiety., Megestrol suspension daily, Reglan 5 mg p.o. t.i.d. as needed, Zofran ODT 4 mg tablets q.i.d. as needed, and promethazine recently administered as suppository form, which was of little benefit. SOCIAL HISTORY: She lives in [place] and is a practicing occupational therapist at [employer]. She is originally from [place]. There was some amount of estrangement Electronically Signed By: ERIBERTO MALCOLM MD 12/16/22 1023 PATIENT NAME: VON SALOMON HISTORY AND PHYSICAL DATE OF : [birth year] REPORT #: [id number] PHYSICIAN: ERIBERTO MALCOLM MD PCP: LI PRYOR MD REPORT IS CONFIDENTIAL AND NOT TO BE RELEASED WITHOUT AUTHORIZATION [facility] [address], [place] [address] Signed from family members. REVIEW OF SYSTEMS: Denies any blood per rectum currently. She has mild left upper quadrant abdominal pain. She denies dysphagia. PHYSICAL EXAMINATION: GENERAL: A very thin white woman who looks to be clinically somewhat dehydrated. VITAL SIGNS: Show temperature 97.5, pulse 55, blood pressure 131/89. O2 saturation 99% on room air. NECK: Trachea is midline. HEENT: Mucous membranes are dry. CHEST: Clear. HEART: Regular. ABDOMEN: Flat and easily palpated. There is no focal mass or tenderness. EXTREMITIES: Show no clubbing, cyanosis, or edema. ASSESSMENT: The patient is well known to have longstanding gastroparesis for reasons that are unclear as well as findings confirmatory of that abnormality in August. She has empirically tried domperidone obtained another person on that medication, last using the medication 2 weeks ago. She noted that it did seem to help her symptoms quite a bit, but did cause her some of the concerns of abdominal queasiness. At this point, she needs admission to the hospital, IV fluid resuscitation, evaluation for electrolytes and correction as necessary. She has had episodic headaches, whether not related to dehydration or associated with her gastroparesis syndrome itself is uncertain. There are cases in which "abdominal migraine" and associated gastroparesis can be benefitted by Imitrex. I did inquire whether she has had erythromycin for her therapy and she does say that she has had it before and it was somewhat beneficial. This may be a reasonable medication in her case as she has gone through a number of the usual remedies for gastroparesis, which have been ineffective largely. For now, we will start IV, obtain lab studies as described, initiate erythromycin and assess the effect of it. If it is beneficial, we will continue with that. If not, may empirically try Imitrex subcutaneously administered, particularly if headache associated with her symptoms at that point. Hers is a difficult situation; she has plans to travel to [place] on this coming Electronically Signed By: ERIBERTO MALCOLM MD 12/16/22 1023 PATIENT NAME: VON SALOMON HISTORY AND PHYSICAL DATE OF : [birth year] REPORT #: [id number] PHYSICIAN: ERIBERTO MALCOLM MD PCP: LI PRYOR MD REPORT IS CONFIDENTIAL AND NOT TO BE RELEASED WITHOUT AUTHORIZATION [address] [address] Signed week (today is Wednesday), which remains to be seen if possible actually. MD FITZ Ziegler/MODL /[id number] cc: Li Pryor MD Copies: ~ Electronically Signed By: ERIBERTO MALCLOM MD 12/16/22 1023 PATIENT NAME: VON SALOMON HISTORY AND PHYSICAL DATE OF : [birth year] REPORT #: [id number] PHYSICIAN: ERIBERTO MALCOLM MD PCP: LI PRYOR MD REPORT IS CONFIDENTIAL AND NOT TO BE RELEASED WITHOUT AUTHORIZATION
--- NOTE | 2022-12-16 11:02 | NUR ---
PT DISCHARGE INSTRUCTIONS GIVEN. NO FURTHER QUESTIONS OR NEEDS VOICED. PT VERBALIZED UNDERSTANDING OF INSTRUCTIONS AND FOLLOW UP CARE. PT GOT DRESSED INDEPENDENTLY. DIETITIAN CONSULTED PT PRIOR TO DISCHARGE.
--- NOTE | 2022-12-16 11:30 | NUR ---
[facility] PAPER FILLED OUT AND SENT TO MIKE PRYOR MD AND NORMAN DON
--- NOTE | 2022-12-17 06:25 | EKG ---
[facility] [address] [facility] [place] [address] Signed Normal sinus rhythm Normal ECG When compared with ECG of 16-DEC-2022 00:39, (Unconfirmed) No significant change was found Confirmed by UNIQUE RODRIGES MD ([id number]) on 12/17/2022 6:25:43 AM Electronically Signed By: UNIQUE RODRIGES 12/17/2225 PATIENT NAME: VON SALOMON Electrocardiogram DATE OF : [birth year] PHYSICIAN: UNIQUE RODRIGES REPORT #: [id number] REPORT IS CONFIDENTIAL AND NOT TO BE RELEASED WITHOUT AUTHORIZATION
== END 2022-12-16 12:03 | disposition home or self-care (01) | DRG 392 ==
LOC: MS 15:18
PROVIDERS: ADMIT Surgery; ATTEND Surgery
PROC: 0T9B70Z Drainage of Bladder with Drainage Device, Via Natural or Artificial Opening (ICD-10-PCS; principal; 2022-12-13)
PROC: 02HV33Z Insertion of Infusion Device into Superior Vena Cava, Percutaneous Approach (ICD-10-PCS; 2022-12-13)
PROC: B548ZZA Ultrasonography of Superior Vena Cava, Guidance (ICD-10-PCS; 2022-12-13)
PROC: 02H633Z Insertion of Infusion Device into Right Atrium, Percutaneous Approach (ICD-10-PCS; 2022-12-14)
DX: K31.84 Gastroparesis (principal); K92.0 Hematemesis; N12 Tubulo-interstitial nephritis, not specified as acute or chronic; N83.12 Corpus luteum cyst of left ovary; E86.0 Dehydration; R00.1 Bradycardia, unspecified; R33.9 Retention of urine, unspecified; K59.00 Constipation, unspecified; M81.0 Age-related osteoporosis without current pathological fracture; R94.31 Abnormal electrocardiogram [ECG] [EKG]; E87.6 Hypokalemia; E83.42 Hypomagnesemia; Q24.9 Congenital malformation of heart, unspecified; Z86.711 Personal history of pulmonary embolism; Z98.890 Other specified postprocedural states; Z95.1 Presence of aortocoronary bypass graft; Z87.19 Personal history of other diseases of the digestive system; Z79.899 Other long term (current) drug therapy; Z86.16 Personal history of COVID-19; Z88.1 Allergy status to other antibiotic agents
CPT/HCPCS: 36415; 36569; 51702; 51798; 71045; 74177; 76705; 80048; 80053; 81001; 82150; 83690; 83735; 84100; 84134; 84443; 84484; 85025; 93005; 93010; 96361; 96365; 96366; 96375; 96376; A9270; G0378; J0696; J1170; J1720; J1790; J1885; J1956; J2405; J3475; J3480; J3490; J7060; J7121; P9612

== ENCOUNTER 2023-11-11 21:45 | Emergency (ER) | payer OTHER ==
[~2023-11-11] VITALS: Ht 167.6 cm; Wt 58.9 kg
[~2023-11-11 21:45] MED LIST changes: +ACETAMINOPHEN500 MG PO; +ATOMOXETINE HCL60 MG PO; +BUPROPION XL150 MG PO; +LEVOFLOXAC750 MG/150 IV; +LEVOFLOXACIN750 MG PO; +ONDANSETRON ODT8 MG SL; +PROMETHEGAN25 MG PR; +TRAZODONE HCL100 MG PO
[2023-11-11] MEDS ORDERED: VYVANSE50 MG PO (21:59)
[2023-11-11] MEDS ORDERED: ASPIRIN 81 MG CHEW PO ONE ×2 (22:15→22:45)
[2023-11-11 22:26] LABS: HEMOGLOBIN 12.8 g/dL (12.0-18.0)
[2023-11-11 22:28] LABS: BASOPHILS 0.9 % (0-2); EOSINOPHILS 2.9 % (0-6); HEMATOCRIT 39.2 % (35.0-50.0); LYMPHOCYTES 20.9 % (24-44); MCH 27.3 (27-36); MCHC 32.6 g/dl (30-36); MCV 83.7 fl (81-99); MONOCYTES 9.6 % (0-12); NEUTROPHILS 65.7 % (39-80); PLATELET COUNT 210 K/uL (140-440); RBC 4.69 M/ul (4.3-5.7); RDW 18.3 (10.5-15.0)
[2023-11-11 22:44] LABS: BILIRUBIN, TOTAL 0.4 ng/dL (0.2-1.0)
--- NOTE | 2023-11-11 22:44 | EKG ---
[facility] [address] [facility] [place] [address] Signed Atrial-paced rhythm with prolonged AV conduction Rightward axis T wave abnormality, consider anterior ischemia Abnormal ECG When compared with ECG of 16-DEC-2022 00:39, Electronic atrial pacemaker has replaced Sinus rhythm T wave inversion now evident in Anterior leads Confirmed by CHAMP DAVID MD ([id number]) on 11/11/2023 10:44:15 PM Electronically Signed By: CHAMP DAVID 11/11/23 2244 PATIENT NAME: VON SALOMON Electrocardiogram DATE OF : [birth year] PHYSICIAN: CHAMP DAVID REPORT #: [id number] REPORT IS CONFIDENTIAL AND NOT TO BE RELEASED WITHOUT AUTHORIZATION
[2023-11-11 23:12] LABS: ALBUMIN 3.6 g/dL (3.4-5.0); ALBUMIN/GLOBULIN RATIO 1.13 (1.1-2.4); ANION GAP 9.9 (7-21); BUN/CREATININE RATIO 20.65 (6.0-28.6); CALCIUM 8.4 mg/dL (8.5-10.1); CREATININE, SERUM 0.92 mg/dL (0.55-1.02); MAGNESIUM 2.1 mg/dL (1.8-2.4); POTASSIUM 3.9 mmol/L (3.5-5.1); PROTEIN, TOTAL 6.8 g/dL (6.4-8.2)
[2023-11-11] MEDS ORDERED: SODIUM CHLORIDE 0.9% 500 ML IV PRN (23:45)
[2023-11-12] MEDS ORDERED: ondansetron HCL 4 MG/2 ML VIAL IV ONE (03:00)
[2023-11-12] MEDS ORDERED: LACTATED RINGER'S 1,000 ML IV ONE (03:15)
[2023-11-12] MEDS ORDERED: droPERidol 5 MG/2 ML VIAL IV ONE (03:30)
[2023-11-12] MEDS ORDERED: diphenhydrAMINE HCL 50 MG/ML VIAL IV ONE ×2 (03:45→04:00)
[2023-11-12 04:28] VITALS: BP 84/46
== END 2023-11-12 04:28 | disposition left against medical advice (07) ==
LOC: ED 21:45
PROVIDERS: Internal Medicine
DX: I47.20 Ventricular tachycardia, unspecified (principal); R07.9 Chest pain, unspecified; Z79.899 Other long term (current) drug therapy
CPT/HCPCS: 36415; 71045; 80053; 83735; 83880; 84484; 84703; 85025; 93005; 93010; 96374; 96375; 99285-25; A9270; J1200; J1790; J2405; J7040; J7121